=== PATIENT | male | born 1970 | race African-American/Black ===

== ENCOUNTER 2018-06-02 00:34 | Emergency (ER) | payer OTHER ==
[2018-06-02] MEDS: HYDROmorphone 1 MG/ML Syringe IVPUSH ONE (01:12)
[2018-06-02] MEDS: Ondansetron 4 MG/2 ML SDV IVPUSH ONE (01:12)
[2018-06-02] MEDS: Sodium Chloride 0.9% 2.5 ML Syringe FLUSH PRN (01:13)
[2018-06-02] MEDS: Sodium Chloride 0.9% 10 ML Syringe FLUSH PRN (01:13)
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
--- NOTE | 2018-06-02 01:45 | CR ---
INDICATION: Post surgical wrist pain TECHNIQUE: Wrist radiograph 3 views right COMPARISON: None FINDINGS: Bone: No acute fractures or aggressive bone lesions are identified. There is a K-wire present extending from the distal pole of the scaphoid into the capitate. Joint: The radiocarpal, carpal, and carpometacarpal joints are unremarkable in appearance. Soft tissue: A small amount of soft tissue gas is present from recent surgery. No radiopaque foreign bodies are seen. IMPRESSION: 1. No acute osseous injuries or abnormalities are noted. Dictated by Aron Samuel MD @ 06/02/2018 1:38:59 AM Dictated by: Aron Samuel MD @ 06/02/2018 01:44:26 (Electronically Signed)
[2018-06-02] MEDS: LORazepam 1 MG Tab PO ONE (02:15)
[2018-06-02] MEDS: Ketorolac 30 MG/ML SDV IVPUSH ONE (02:15)
[2018-06-02 03:16] VITALS: BP 168/114
== END 2018-06-02 03:05 | disposition home or self-care (01) ==
LOC: MW.ED 00:34
DX: G89.18 Other acute postprocedural pain (principal); Z98.890 Other specified postprocedural states; I10 Essential (primary) hypertension; F17.210 Nicotine dependence, cigarettes, uncomplicated; Z79.82 Long term (current) use of aspirin; Z79.899 Other long term (current) drug therapy; Z88.5 Allergy status to narcotic agent; Z88.6 Allergy status to analgesic agent
CPT/HCPCS: 73110-26-RT; 73110-RT; 96374; 96375; 99283-25; A9270-GY; J1170; J1885; J2405

== ENCOUNTER 2018-07-08 09:19 | Emergency (ER) | payer OTHER ==
[2018-07-08] MEDS ORDERED: Sodium Chloride 0.9% 10 ML Syringe FLUSH PRN (09:24)
[2018-07-08] MEDS ORDERED: Sodium Chloride 0.9% 1,000 ML IV ONE (09:24)
[2018-07-08] MEDS ORDERED: methylPREDNISolone Sodium Succinate 125 MG/2 ML SDV ONE (09:24)
[2018-07-08] MEDS ORDERED: diphenhydrAMINE 50 MG/ML SDV ONE (09:24)
[2018-07-08] MEDS ORDERED: Nitroglycerin 0.4 MG Tab.SL ONE (09:24)
[2018-07-08] MEDS ORDERED: diphenhydrAMINE 50 MG/ML SDV IVPUSH ONE (09:24)
[2018-07-08] MEDS ORDERED: Sodium Chloride 0.9% 2.5 ML Syringe FLUSH PRN (09:24)
[2018-07-08] MEDS ORDERED: methylPREDNISolone Sodium Succinate 125 MG/2 ML SDV IVPUSH ONE (09:24)
[2018-07-08] MEDS ORDERED: Famotidine 20 MG/2 ML SDV IVPUSH ONE (09:24)
[2018-07-08] MEDS ORDERED: Labetalol 20 MG/4 ML Syringe IVPUSH ONE ×3 (09:25→09:43)
[2018-07-08] MEDS ORDERED: Famotidine 20 MG/2 ML SDV ONE (09:25)
--- NOTE | 2018-07-08 09:26 | EDM.PDOC ---
ED HPI GENERAL MEDICAL PROBLEM - General Stated Complaint: trouble breathing Time Seen by Provider: 07/08/18 09:22 Source of Information: Reports: Patient History Limitations: Reports: No Limitations - History of Present Illness INITIAL COMMENTS - FREE TEXT/NARRATIVE: History of present illness: []Patient was started on triamterene/hydrochlorothiazide and Buproprion on 06/17 and began having hives 3 days ago. He has been taking Benadryl for the hives and this morning started having chest pain. His chest pain was 10/10 and complained of difficulty breathing and itchy rash on arrival. Patient denies recent illnesses. Review of systems: As per history of present illness and below otherwise all systems reviewed and negative. Past medical history: As per history of present illness and as reviewed below otherwise noncontributory. Surgical history: As per history of present illness and as reviewed below otherwise noncontributory. Social history: No reported history of drug or alcohol abuse. Family history: As per history of present illness and as reviewed below otherwise noncontributory. Physical exam: General: Well developed, well nourished in NAD HEENT: Atraumatic, normocephalic, pupils reactive, negative for conjunctival pallor or scleral icterus, mucous membranes moist, throat clear, neck supple, nontender, trachea midline. Lungs: Clear to auscultation, breath sounds equal bilaterally, chest nontender. Heart: S1S2, regular, negative for clicks, rubs, or JVD. Abdomen: NABS, Soft, nondistended, nontender. Negative for masses or hepatosplenomegaly. Negative for costovertebral tenderness. Pelvis: Stable nontender. Genitourinary: Deferred. Rectal: Deferred. Extremities: Atraumatic, negative for cords or calf pain. Neurovascular unremarkable. Neuro: Awake, alert, oriented. Cranial nerves II through XII unremarkable. Cerebellum unremarkable. Motor and sensory unremarkable throughout. Exam nonfocal. Skin:warm and dry Diagnostics: EKG, CBC, chemistry, troponin, chest [id number], CT head-negative, and tissue neck-negative Therapeutics: Aspirin, SL nitroglycerin, nitroglycerin drip, labetalol 20 mg IV push 2, Benadryl 50 mg, Solu-Medrol 125, Pepcid 20mg IV ED Course: Dr. Stearns, cardiology, consulted to evaluate patient's EKG-recommended BP treatment and repeating EKG 30 minutes. Improved chest pain from 02/02-08/03, blood pressure 225/136 to 159/95 10:30-Dr. Matta accepts patient to [facility] emergency room Impression: Hypertensive emergency Prescriptions: none Plan: Transfer to [facility] Definitive disposition and diagnosis as appropriate pending reevaluation and review of above. Chest Pain Score (Numeric/FACES): 6 - Related Data Allergies Allergy/AdvReac Type Severity Reaction Status Date / Time morphine Allergy Other Verified 07/08/18 09:37 oxycodone HCl [From Percocet] Allergy Nausea Verified 07/08/18 09:37 Home Meds: Home Meds Triamterene/Hydrochlorothiazid [Triamterene-HCTZ 37.5-25 MG] 1 each PO DAILY [History] buPROPion [buPROPion XL] 150 mg PO BEDTIME 07/08/18 [History] Past Medical History HEENT History: Reports: Allergic Rhinitis Cardiovascular History: Reports: Hypertension Musculoskeletal History: Reports: Osteoarthritis - Past Surgical History Musculoskeletal Surgical History: Reports: Arthroscopic Knee, ORIF, Other (See Below) Other Musculoskeletal Surgeries/Procedures:: R wrist ligament repair and scope Social & Family History - Living Situation & Occupation Living situation: Reports: , with Spouse Occupation: Employed ED ROS ALLERGIC REACTION - Review of Systems Review Of Systems: ROS reveals no pertinent complaints other than HPI. ED EXAM GENERAL NO PERIP PULSE - Physical Exam Exam: See Below (See history of present illness) Course - Vital Signs Last Recorded V/S: Last Vital Signs Temp 98 F 07/08/18 09:37 Pulse 66 07/08/18 10:13 Resp 16 07/08/18 10:13 BP 142/81 H 07/08/18 11:00 Pulse Ox 95 07/08/18 09:56 - Orders/Labs/Meds Orders: Active Orders 24 hr Category Date Time Status Patient Status [ADT] Stat ADT 07/08/18 10:09 Active EKG Documentation Completion [RC] STAT Care 07/08/18 09:24 Active EKG Documentation Completion [RC] STAT Care 07/08/18 09:54 Active Nitroglycerin/D5W [Nitroglycerin 25 MG/D5W 250 ML] Med 07/08/18 10:00 Active 25 mg in 250 ml IV TITRATE Sodium Chloride 0.9% [Saline Flush] Med 07/08/18 09:24 Active 10 ml FLUSH ASDIRECTED PRN Sodium Chloride 0.9% [Saline Flush] Med 07/08/18 09:24 Active 2.5 ml FLUSH ASDIRECTED PRN Saline Lock Insert [OM.PC] Stat Oth 07/08/18 09:24 Ordered Medication Orders Nitroglycerin/Dextrose (Nitroglycerin 25 Mg/D5w 250 Ml) 25 mg in 250 mls @ 3 mls/hr IV TITRATE DALILA; Protocol Last Titration: 07/08/18 10:39 Dose: 9 mcg/min, 5.4 mls/hr Titration: 07/08/18 10:29 Dose: 7 mcg/min, 4.2 mls/hr Titration: 07/08/18 10:24 Dose: 9 mcg/min, 5.4 mls/hr Titration: 07/08/18 10:19 Dose: 11 mcg/min, 6.6 mls/hr Titration: 07/08/18 10:14 Dose: 9 mcg/min, 5.4 mls/hr Titration: 07/08/18 10:09 Dose: 7 mcg/min, 4.2 mls/hr Admin: 07/08/18 09:50 Dose: 5 mcg/min, 3 mls/hr Sodium Chloride (Saline Flush) 10 ml FLUSH ASDIRECTED PRN PRN Reason: Keep Vein Open Sodium Chloride (Saline Flush) 2.5 ml FLUSH ASDIRECTED PRN PRN Reason: Keep Vein Open Labs: Laboratory Tests 07/08/18 07/08/18 Range/Units 09:27 09:27 WBC 7.84 (4.0-11.0) K/uL RBC 5.53 (4.50-5.90) M/uL Hgb 13.9 (13.0-17.0) g/dL Hct 42.7 (38.0-50.0) % MCV 77.2 L (80.0-98.0) fL MCH 25.1 L (27.0-32.0) pg MCHC 32.6 (31.0-37.0) g/dL RDW Std Deviation 40.1 (28.0-62.0) fl RDW Coeff of Gregorio 14 (11.0-15.0) % Plt Count 213 (150-400) K/uL MPV 11.00 (7.40-12.00) fL Neut % (Auto) 62.2 (48.0-80.0) % Lymph % (Auto) 29.1 (16.0-40.0) % [place] % (Auto) 7.0 (0.0-15.0) % Eos % (Auto) 1.4 (0.0-7.0) % Baso % (Auto) 0.3 (0.0-1.5) % Neut # (Auto) 4.9 (1.4-5.7) K/uL Lymph # (Auto) 2.3 (0.6-2.4) K/uL [place] # (Auto) 0.6 (0.0-0.8) K/uL Eos # (Auto) 0.1 (0.0-0.7) K/uL Baso # (Auto) 0.0 (0.0-0.1) K/uL Nucleated RBC % 0.0 /100WBC Nucleated RBCs # 0 K/uL Sodium 140 (136-148) mmol/L Potassium 3.9 (3.5-5.1) mmol/L Chloride 103 (98-107) mmol/L Carbon Dioxide 26.7 (21.0-32.0) mmol/L BUN 21 H (7.0-18.0) mg/dL Creatinine 1.5 H (0.8-1.3) mg/dL Est Cr Clr Drug Dosing 71.98 mL/min Estimated GFR (MDRD) > 60.0 ml/min Glucose 128 H (74-106) mg/dL Calcium 9.7 (8.5-10.1) mg/dL Total Bilirubin 0.6 (0.2-1.0) mg/dL AST 23 (15-37) IU/L ALT 51 (14-63) IU/L Alkaline Phosphatase 72 (46-116) U/L Troponin I < 0.050 (0.000-0.056) ng/mL Total Protein 8.1 (6.4-8.2) g/dL Albumin 4.2 (3.4-5.0) g/dL Globulin 3.9 (2.6-4.0) g/dL Albumin/Globulin Ratio 1.1 (0.9-1.6) Meds: Medications Generic Name Dose Route Start Last Admin Trade Name Freq PRN Reason Stop Dose Admin Nitroglycerin/Dextrose 25 mg in 250 mls @ 3 mls/hr 07/08/18 10:00 07/08/18 10 :39 Nitroglycerin 25 Mg/D5w 250 Ml IV 9 mcg/min TITRATE DALILA 5.4 mls/hr Titration Protocol 5 MCG/MIN Sodium Chloride 10 ml 07/08/18 09:24 Saline Flush FLUSH ASDIRECTED PRN Keep Vein Open Sodium Chloride 2.5 ml 07/08/18 09:24 Saline Flush FLUSH ASDIRECTED PRN Keep Vein Open Discontinued Medications Generic Name Dose Route Start Last Admin Trade Name Clarenceq PRN Reason Stop Dose Admin Diphenhydramine HCl 50 mg 07/08/18 09:24 07/08/18 09:30 Benadryl IVPUSH 07/08/18 09:25 50 mg ONETIME ONE Administration Diphenhydramine HCl Confirm 07/08/18 09:24 07/08/18 09:46 Benadryl Administered 07/08/18 09:25 Not Given Dose 50 mg .ROUTE .STK-MED ONE Famotidine 20 mg 07/08/18 09:24 07/08/18 09:32 Pepcid IVPUSH 07/08/18 09:25 20 mg ONETIME ONE Administration Famotidine Confirm 07/08/18 09:25 07/08/18 09:45 Pepcid Administered 07/08/18 09:26 Not Given Dose 20 mg .ROUTE .STK-MED ONE Hydromorphone HCl Confirm 07/08/18 09:44 07/08/18 09:57 Dilaudid Administered 07/08/18 09:45 Not Given Dose 2 mg .ROUTE .STK-MED ONE Hydromorphone HCl 0.5 mg 07/08/18 09:56 07/08/18 10:01 Dilaudid IVPUSH 07/08/18 09:57 0.5 mg ONETIME ONE Administration Sodium Chloride 1,000 mls @ 250 mls/hr 07/08/18 09:24 07/08/18 10:10 Normal Saline IV 07/08/18 13:23 Not Given .Bolus ONE Nitroglycerin/Dextrose Confirm 07/08/18 09:44 07/08/18 09:50 Nitroglycerin 25 Mg/D5w 250 Ml Administered 07/08/18 09:45 Not Given Dose 25 mg in 250 mls @ as directed .ROUTE .STK-MED ONE Labetalol HCl 20 mg 07/08/18 09:37 07/08/18 09:45 Normodyne IVPUSH 07/08/18 09:38 Not Given NOW ONE Protocol Labetalol HCl 20 mg 07/08/18 09:43 07/08/18 09:45 Normodyne IVPUSH 07/08/18 09:44 20 mg NOW ONE Administration Protocol Labetalol HCl 20 mg 07/08/18 10:20 07/08/18 11:11 Normodyne IVPUSH 07/08/18 10:21 Not Given NOW ONE Protocol Lorazepam Confirm 07/08/18 09:44 07/08/18 10:10 Ativan Administered 07/08/18 09:45 Not Given Dose 2 mg .ROUTE .STK-MED ONE Methylprednisolone Sodium Succinate 125 mg 07/08/18 09:24 07/08/18 09:42 Solu-Medrol IVPUSH 07/08/18 09:25 125 mg ONETIME ONE Administration Methylprednisolone Sodium Succinate Confirm 07/08/18 09:24 07/08/18 09:44 Solu-Medrol Administered 07/08/18 09:25 Not Given Dose 125 mg .ROUTE .STK-MED ONE Nitroglycerin Confirm 07/08/18 09:24 07/08/18 09:46 Nitrostat Administered 07/08/18 09:25 Not Given Dose 0.4 mg .ROUTE .STK-MED ONE Nitroglycerin 0.4 mg 07/08/18 09:26 07/08/18 09:38 Nitrostat SL 0.4 mg Q5M PRN Administration Chest Pain Ondansetron HCl 4 mg 07/08/18 09:56 07/08/18 09:58 Zofran IVPUSH 07/08/18 09:57 4 mg ONETIME ONE Administration Departure - Departure Time of Disposition: 11:05 Disposition: DC/Tfer to Acute Hospital 02 Condition: Serious Clinical Impression: Hypertensive emergency - Discharge Information - My Orders Last 24 Hours: My Active Orders 07/08/18 09:24 EKG Documentation Completion [RC] STAT Sodium Chloride 0.9% [Saline Flush] 10 ml FLUSH ASDIRECTED PRN Sodium Chloride 0.9% [Saline Flush] 2.5 ml FLUSH ASDIRECTED PRN Saline Lock Insert [OM.PC] Stat 07/08/18 09:54 EKG Documentation Completion [RC] STAT 07/08/18 10:00 Nitroglycerin/D5W [Nitroglycerin 25 MG/D5W 250 ML] 25 mg in 250 ml IV TITRATE 07/08/18 10:09 Patient Status [ADT] Stat - Assessment/Plan Last 24 Hours: My Active Orders 07/08/18 09:24 EKG Documentation Completion [RC] STAT Sodium Chloride 0.9% [Saline Flush] 10 ml FLUSH ASDIRECTED PRN Sodium Chloride 0.9% [Saline Flush] 2.5 ml FLUSH ASDIRECTED PRN Saline Lock Insert [OM.PC] Stat 07/08/18 09:54 EKG Documentation Completion [RC] STAT 07/08/18 10:00 Nitroglycerin/D5W [Nitroglycerin 25 MG/D5W 250 ML] 25 mg in 250 ml IV TITRATE 07/08/18 10:09 Patient Status [ADT] Stat
[2018-07-08] MEDS ORDERED: EPINEPHrine 1 MG/ML SDV IM ONE (09:29)
[2018-07-08] MEDS: Nitroglycerin 0.4 MG Tab.SL SL PRN ×3 (09:29→09:38)
[2018-07-08] MEDS ORDERED: HYDROmorphone 2 MG/ML Syringe ONE (09:44)
[2018-07-08] MEDS ORDERED: LORazepam 2 MG/ML SDV ONE (09:44)
[2018-07-08] MEDS ORDERED: Nitroglycerin/D5W 25 MG/250 ML BOTTLE ONE (09:44)
[2018-07-08] MEDS ORDERED: Ondansetron 4 MG/2 ML SDV IVPUSH ONE (09:56)
[2018-07-08] MEDS ORDERED: HYDROmorphone 2 MG/ML Syringe IVPUSH ONE (09:56)
[2018-07-08] MEDS ORDERED: Nitroglycerin/D5W 250 ML IV SCH (10:00)
[2018-07-08] MEDS ORDERED: Nitroglycerin/D5W 25 MG/250 ML BOTTLE IV SCH (10:00)
[2018-07-08 10:01] LABS: CHLORIDE,CL 103 mmol/L (98-107); SODIUM,NA 140 mmol/L (136-148)
[2018-07-08] MEDS: Labetalol 20 MG/4 ML Syringe IVPUSH ONE ×2 (10:23→11:11)
--- NOTE | 2018-07-08 11:06 | CR ---
EXAMINATION: Portable chest radiograph. HISTORY: Shortness of breath. FINDINGS: The trachea is midline. The cardiomediastinal silhouette is within normal limits. No pulmonary infiltrates, effusions or pneumothorax. Osseous structures appear unremarkable. IMPRESSION: No acute cardiopulmonary process.
[2018-07-08 11:15] VITALS: BP 142/81
--- NOTE | 2018-07-08 11:25 | CT ---
EXAMINATION: Non contrast CT head. Coronal and sagittal reformats. HISTORY: Pain FINDINGS: No evidence of intra or extra axial hemorrhage, mass, midline shift, hydrocephalus or edema. No hypoattenuation changes in the major vascular territories to suggest acute infarct. No abnormal intracranial calcifications are detected. No evidence of substantial vascular calcifications. Paranasal sinuses and mastoid air cells are well aerated without substantial findings. Orbits and globes are symmetric. Pituitary fossa appears unremarkable. Calvarium is intact. No evidence of skull fracture. IMPRESSION: No acute intracranial findings.
--- NOTE | 2018-07-08 11:28 | CT ---
EXAMINATION: CT soft tissue neck without contrast HISTORY: Both the swallowing COMPARISON: None TECHNIQUE: Axial CT imaging obtained through the neck without contrast. Sagittal reconstructions obtained. FINDINGS: The pharyngeal mucosal structures appear grossly symmetric. Parotid and submandibular glands are normal. Larynx and upper trachea appear grossly unremarkable. No bulky cervical lymphadenopathy. The thyroid gland appears grossly normal. No suspicious osseous abnormalities identified. The lung apices are clear. IMPRESSION: No acute findings noted.
== END 2018-07-08 11:25 ==
LOC: MW.ED 09:19 → UNDOADMIN 10:17 → MW.ICU 10:17 → UNDODISIN 10:30
DX: I16.0 Hypertensive urgency (principal); I10 Essential (primary) hypertension; Z88.5 Allergy status to narcotic agent; Z88.8 Allergy status to other drugs, medicaments and biological substances
CPT/HCPCS: 70450; 70490; 71045; 80053; 84484; 85025; 93005; 96365; 96366; 96374; 96375; 99285; A9270; J1170; J1200; J2405; J2930; J3490

== ENCOUNTER 2020-04-11 17:49 | Inpatient (IN) | payer SELFPAY ==
[2020-04-11] MEDS ORDERED: Albuterol/Ipratropium 3.0-0.5 MG/3 ML Neb Soln NEB PRN (18:34)
[2020-04-11] MEDS ORDERED: Ondansetron 4 MG Tab.DIS PO PRN (18:34)
--- NOTE | 2020-04-11 18:50 | PCM.HP.2 ---
<Yuniel Hernandez - Last Filed: 04/11/20 20:02> H&P History of Present Illness - General Date of Service: 04/11/20 Admit Problem/Dx: Admission Diagnosis/Problem Admission Diagnosis/Problem Diarrhea in adult patient Source of Information: Patient History Limitations: Reports: No Limitations - History of Present Illness Initial Comments - Free Text/Narative: Patient is a 49-year-old male with a significant past medical history of hypertension on triamterene and losartan presenting today as transfer from [facility] secondary for 9 to 10 days of increasing diarrhea and reduced appetite. Patient did test positive for Covid 9 days prior and was advised to monitor vitals at home. Since diagnosis patient has been lethargic, fatigued, complaining of decreased appetite. Of note has been trying to keep hydrated with liquids and chicken soup but is having 6-7 watery bowel movements daily sometimes waking up in the middle of the night. Denies any chest pain, shortness of breath. 2 days prior appreciated some fevers with chills with increasing fatigue and presented himself to [facility] clinic where it was determined that patient will likely need to be transferred to [facility] in [place]. ED course in [facility]: Patient received 10 mg dexamethasone +2 L LR bolus and Toradol 50 mg IV once. EKG performed showing no ST elevation or depression CT angio ordered secondary to elevated D-dimer showing no pulmonary embolism. Patchy groundglass opacities throughout both lungs most likely representing Covid pneumonia. Mild bilateral bronchial wall thickening. Positive small hiatal hernia. Labs Troponin at 1209: 0.04 troponin at 1411: 0.03 WBC 5.1. Creatinine 2.65 GFR 31 D-dimer 1.32. UA negative Bedside: Patient is complaining of increasing diarrhea+ fatigue with minimal shortness of breath. Patient denies any chest pain, palpitations. Positive headache. Is complaining of decreased appetite but will try to have some dinner tonight. - Related Data Allergies/Adverse Reactions: Allergies Allergy/AdvReac Type Severity Reaction Status Date / Time morphine Allergy Other Verified 07/08/18 09:37 oxycodone HCl [From Percocet] Allergy Nausea Verified 07/08/18 09:37 Home Medications: Home Meds Triamterene/Hydrochlorothiazid [Triamterene-HCTZ 37.5-25 MG] 1 each PO DAILY 07/08/18 [History] buPROPion [buPROPion XL] 150 mg PO BEDTIME 07/08/18 [History] Losartan [Cozaar] 100 mg PO DAILY 04/12/20 [History] Past Medical History HEENT History: Reports: Allergic Rhinitis Cardiovascular History: Reports: Hypertension Respiratory History: Reports: Sleep Apnea Gastrointestinal History: Reports: None Genitourinary History: Reports: None Musculoskeletal History: Reports: Osteoarthritis Neurological History: Reports: None Psychiatric History: Reports: None Endocrine/Metabolic History: Reports: None Hematologic History: Reports: None Immunologic History: Reports: None Oncologic (Cancer) History: Reports: None Dermatologic History: Reports: None - Infectious Disease History Infectious Disease History: Reports: Chicken Pox, Measles, Mumps - Past Surgical History Head Surgeries/Procedures: Reports: None HEENT Surgical History: Reports: None Cardiovascular Surgical History: Reports: None Respiratory Surgical History: Reports: None GI Surgical History: Reports: None Musculoskeletal Surgical History: Reports: Arthroscopic Knee, ORIF, Other (See Below) Other Musculoskeletal Surgeries/Procedures:: R wrist ligament repair and scope Social & Family History - Family History Family Medical History: No Pertinent Family History Respiratory: Reports: None - Tobacco Use Tobacco Use Status *Q: Former Tobacco User Years of Tobacco use: 15 Used Tobacco, but Quit: Yes Month/Year Tobacco Last Used: years ago Second Hand Smoke Exposure: Yes - Caffeine Use Caffeine Use: Reports: None - Recreational Drug Use Recreational Drug Use: No - Living Situation & Occupation Living situation: Reports: , with Spouse Occupation: Employed H&P Review of Systems - Review of Systems: Review Of Systems: See Below General: Reports: Chills, Malaise, Fatigue. Denies: Fever HEENT: Reports: No Symptoms Pulmonary: Reports: Cough. Denies: Shortness of Breath, Wheezing, Pleuritic Chest Pain, Sputum Cardiovascular: Denies: Chest Pain, Palpitations, Edema Gastrointestinal: Reports: Diarrhea, Decreased Appetite, Nausea. Denies: Abdominal Pain, Constipation Genitourinary: Reports: No Symptoms Musculoskeletal: Reports: No Symptoms Skin: Reports: No Symptoms Psychiatric: Reports: No Symptoms Neurological: Reports: No Symptoms, Headache. Denies: Confusion, Dizziness Exam - Exam Exam: See Below - Vital Signs Weight: 137.348 kg - Exam General: Alert, Oriented, Cooperative HEENT: EOMI, Other (dry oral mucosa) Neck: Supple, Trachea Midline Lungs: Other (b/l rhonchi w. mild expiratory wheeze ) Cardiovascular: Regular Rate, Regular Rhythm GI/Abdominal Exam: Soft, Non-Tender, Other (hyperactive BS) Extremities: Normal Inspection, Normal Range of Motion Neurological: Cranial Nerves Intact Neuro Extensive - Mental Status: Alert, Oriented x3, Normal Mood/Affect Psychiatric: Alert, Normal Mood - Patient Data Result Diagrams: 04/11/20 19:03 Sepsis Event Note - Evaluation Sepsis Screening Result: No Definite Risk - Problem List (1) COVID-19 SNOMED Code(s): 622003500 ICD Code: U07.1 - COVID-19 Status: Acute Current Visit: Yes (2) Dehydration SNOMED Code(s): 66425832 ICD Code: E86.0 - DEHYDRATION Status: Acute Current Visit: Yes (3) Diarrhea SNOMED Code(s): 49864177 ICD Code: R19.7 - DIARRHEA, UNSPECIFIED Status: Acute Current Visit: Yes (4) Hypertension SNOMED Code(s): 33305856 ICD Code: I10 - ESSENTIAL (PRIMARY) HYPERTENSION Status: Acute Current Visit: Yes Problem List Initiated/Reviewed/Updated: Yes Orders Last 24hrs: Active Orders 24 hr Category Date Time Status Patient Status [ADT] Routine ADT 04/11/20 18:34 Active Acapella [RT Chest Physiotherapy] [RC] ASDIRECTED Care 04/11/20 18:49 Active Bedrest Bathroom Privileges [RC] ASDIRECTED Care 04/11/20 18:34 Active Height and Weight [RC] DAILY Care 04/11/20 18:34 Active Intake and Output [RC] QSHIFT Care 04/11/20 18:36 Active May Shower [RC] ASDIRECTED Care 04/11/20 18:34 Active Oxygen Therapy [RC] PRN Care 04/11/20 18:34 Active RT Aerosol Therapy [RC] ASDIRECTED Care 04/11/20 18:38 Active Up ad Danna [RC] ASDIRECTED Care 04/11/20 18:34 Active VTE/DVT Education [RC] PER UNIT ROUTINE Care 04/11/20 18:34 Active Vital Signs [RC] Q4H Care 04/11/20 18:34 Active Respiratory Care Assess and Treatment [CONS] Routine Cons 04/11/20 18:34 Active Heart Healthy Diet [DIET] Diet 04/12/20 Breakfast Active Acetaminophen [TylenoL] Med 04/11/20 18:34 Active 650 mg PO Q4H PRN Albuterol/Ipratropium [DuoNeb 3.0-0.5 MG/3 ML] Med 04/11/20 18:34 Active 3 ml NEB Q4HRRT PRN Lactated Ringers [Ringers, Lactated] 1,000 ml Med 04/11/20 19:00 Ordered IV ASDIRECTED Ondansetron [Zofran ODT] Med 04/11/20 18:34 Active 4 mg PO Q4H PRN Pantoprazole [ProTONIX IV] Med 04/11/20 20:00 Active 40 mg IVPUSH Q24H Resuscitation Status Routine Resus Stat 04/11/20 18:34 Ordered Medication Orders Acetaminophen (Tylenol) 650 mg PO Q4H PRN PRN Reason: Pain (Mild 1-3)/fever Albuterol/Ipratropium (Duoneb 3.0-0.5 Mg/3 Ml) 3 ml NEB Q4HRRT PRN PRN Reason: Shortness Of Breath/wheezing Lactated Ringer's (Ringers, Lactated) 1,000 mls @ 200 mls/hr IV ASDIRECTED DALILA Ondansetron HCl (Zofran Odt) 4 mg PO Q4H PRN PRN Reason: nausea, able to take PO Pantoprazole Sodium (Protonix Iv) 40 mg IVPUSH Q24H DALILA Assessment/Plan Comment:: Assessment: 1. Dehydration with diarrhea 2. Viral pneumonia most likely secondary to COVID-19 3. Acute kidney injury secondary to above 4. Elevated D-dimer with negative CT chest 5. Past medical history: Hypertension, obesity Plan. Admit inpatient. Full code. I's and O's per routine. Vitals per routine. Pantoprazole 40 daily. DVT prophylaxis: heparin 5000 q 12 hrs Heart healthy Diet 1. Significant dehydration in light of diarrhea probably secondary to COVID-19 infection: Continue LR at 200 cc/h. Has received 2.5 L since discharge from [facility]. Repeat CBC and CMP in the morning. Repeat BMP suggests some improvement since fluid hydration; negative troponin. Received Dexamethasone at outside facility; currently not requiring O2 Stool studies ordered. 2. TIFFANY: continue hydration: recheck labs in AM . LR 200 cc/hr continue 3. Hold home medications for now due to sofer BP secondary to dehydration <Kenneth Duenas - Last Filed: 04/12/20 18:01> H&P History of Present Illness - General Admit Problem/Dx: Admission Diagnosis/Problem Admission Diagnosis/Problem Diarrhea in adult patient Exam - Vital Signs Vital Signs: Last Vital Signs Temp 39.0 C H 04/12/20 17:20 Pulse 75 04/12/20 17:20 Resp 18 04/12/20 17:20 BP 147/76 H 04/12/20 17:20 Pulse Ox 96 04/12/20 17:20 - Patient Data Lab Results Last 24 hrs: Laboratory Results - last 24 hr 04/11/20 04/12/20 04/12/20 Range/Units 19:03 05:35 05:35 WBC 8.15 (4.0-11.0) K/uL RBC 4.97 (4.50-5.90) M/uL Hgb 12.3 L (13.0-17.0) g/dL Hct 38.2 (38.0-50.0) % MCV 76.9 L (80.0-98.0) fL MCH 24.7 L (27.0-32.0) pg MCHC 32.2 (31.0-37.0) g/dL RDW Std Deviation 37.1 (28.0-62.0) fl RDW Coeff of Gregorio 13 (11.0-15.0) % Plt Count 230 (150-400) K/uL MPV 10.30 (7.40-12.00) fL Neut % (Auto) 84.4 H (48.0-80.0) % Lymph % (Auto) 7.0 L (16.0-40.0) % Haskell % (Auto) 8.5 (0.0-15.0) % Eos % (Auto) 0.0 (0.0-7.0) % Baso % (Auto) 0.1 (0.0-1.5) % Neut # (Auto) 6.9 H (1.4-5.7) K/uL Lymph # (Auto) 0.6 (0.6-2.4) K/uL Haskell # (Auto) 0.7 (0.0-0.8) K/uL Eos # (Auto) 0.0 (0.0-0.7) K/uL Baso # (Auto) 0.0 (0.0-0.1) K/uL Nucleated RBC % 0.0 /100WBC Nucleated RBCs # 0 K/uL Lactate (0.20-2.00) mmol/L Sodium 135 L 134 L (136-148) mmol/L Potassium 4.5 4.4 (3.5-5.1) mmol/L Chloride 97 L 99 (98-107) mmol/L Carbon Dioxide 28.8 26.9 (21.0-32.0) mmol/L BUN 24 H 22 H (7.0-18.0) mg/dL Creatinine 2.4 H 1.7 H (0.8-1.3) mg/dL Est Cr Clr Drug Dosing 42.81 60.44 mL/min Estimated GFR (MDRD) 28.8 42.9 ml/min Glucose 175 H 133 H (74-106) mg/dL POC Glucose (60-110) mg/dL Hemoglobin A1c (4.5 - 6.2) % Calcium 9.1 8.7 (8.5-10.1) mg/dL Magnesium 2.4 (1.8-2.4) mg/dL Total Bilirubin 0.8 (0.2-1.0) mg/dL Direct Bilirubin (0.0-0.5) mg/dL AST 41 H (15-37) IU/L ALT 50 (14-63) IU/L Alkaline Phosphatase 45 L (46-116) U/L Troponin I < 0.050 (0.000-0.056) ng/mL Total Protein 7.3 (6.4-8.2) g/dL Albumin 3.2 L (3.4-5.0) g/dL Globulin 4.1 H (2.6-4.0) g/dL Albumin/Globulin Ratio 0.8 L (0.9-1.6) 04/12/20 04/12/20 04/12/20 Range/Units 05:35 08:57 11:35 WBC (4.0-11.0) K/uL RBC (4.50-5.90) M/uL Hgb (13.0-17.0) g/dL Hct (38.0-50.0) % MCV (80.0-98.0) fL MCH (27.0-32.0) pg MCHC (31.0-37.0) g/dL RDW Std Deviation (28.0-62.0) fl RDW Coeff of Gregorio (11.0-15.0) % Plt Count (150-400) K/uL MPV (7.40-12.00) fL Neut % (Auto) (48.0-80.0) % Lymph % (Auto) (16.0-40.0) % Haskell % (Auto) (0.0-15.0) % Eos % (Auto) (0.0-7.0) % Baso % (Auto) (0.0-1.5) % Neut # (Auto) (1.4-5.7) K/uL Lymph # (Auto) (0.6-2.4) K/uL Haskell # (Auto) (0.0-0.8) K/uL Eos # (Auto) (0.0-0.7) K/uL Baso # (Auto) (0.0-0.1) K/uL Nucleated RBC % /100WBC Nucleated RBCs # K/uL Lactate (0.20-2.00) mmol/L Sodium (136-148) mmol/L Potassium (3.5-5.1) mmol/L Chloride (98-107) mmol/L Carbon Dioxide (21.0-32.0) mmol/L BUN (7.0-18.0) mg/dL Creatinine (0.8-1.3) mg/dL Est Cr Clr Drug Dosing mL/min Estimated GFR (MDRD) ml/min Glucose (74-106) mg/dL POC Glucose 122 H 124 H (60-110) mg/dL Hemoglobin A1c 6.4 H (4.5 - 6.2) % Calcium (8.5-10.1) mg/dL Magnesium (1.8-2.4) mg/dL Total Bilirubin (0.2-1.0) mg/dL Direct Bilirubin (0.0-0.5) mg/dL AST (15-37) IU/L ALT (14-63) IU/L Alkaline Phosphatase (46-116) U/L Troponin I (0.000-0.056) ng/mL Total Protein (6.4-8.2) g/dL Albumin (3.4-5.0) g/dL Globulin (2.6-4.0) g/dL Albumin/Globulin Ratio (0.9-1.6) 04/12/20 04/12/20 04/12/20 Range/Units 12:39 12:39 16:31 WBC (4.0-11.0) K/uL RBC (4.50-5.90) M/uL Hgb (13.0-17.0) g/dL Hct (38.0-50.0) % MCV (80.0-98.0) fL MCH (27.0-32.0) pg MCHC (31.0-37.0) g/dL RDW Std Deviation (28.0-62.0) fl RDW Coeff of Gregorio (11.0-15.0) % Plt Count (150-400) K/uL MPV (7.40-12.00) fL Neut % (Auto) (48.0-80.0) % Lymph % (Auto) (16.0-40.0) % Haskell % (Auto) (0.0-15.0) % Eos % (Auto) (0.0-7.0) % Baso % (Auto) (0.0-1.5) % Neut # (Auto) (1.4-5.7) K/uL Lymph # (Auto) (0.6-2.4) K/uL Haskell # (Auto) (0.0-0.8) K/uL Eos # (Auto) (0.0-0.7) K/uL Baso # (Auto) (0.0-0.1) K/uL Nucleated RBC % /100WBC Nucleated RBCs # K/uL Lactate 2.6 H* 1.5 (0.20-2.00) mmol/L Sodium (136-148) mmol/L Potassium (3.5-5.1) mmol/L Chloride (98-107) mmol/L Carbon Dioxide (21.0-32.0) mmol/L BUN (7.0-18.0) mg/dL Creatinine (0.8-1.3) mg/dL Est Cr Clr Drug Dosing mL/min Estimated GFR (MDRD) ml/min Glucose (74-106) mg/dL POC Glucose (60-110) mg/dL Hemoglobin A1c (4.5 - 6.2) % Calcium (8.5-10.1) mg/dL Magnesium (1.8-2.4) mg/dL Total Bilirubin (0.2-1.0) mg/dL Direct Bilirubin 0.10 (0.0-0.5) mg/dL AST (15-37) IU/L ALT (14-63) IU/L Alkaline Phosphatase (46-116) U/L Troponin I (0.000-0.056) ng/mL Total Protein (6.4-8.2) g/dL Albumin (3.4-5.0) g/dL Globulin (2.6-4.0) g/dL Albumin/Globulin Ratio (0.9-1.6) 12/18/20 Range/Units 17:11 WBC (4.0-11.0) K/uL RBC (4.50-5.90) M/uL Hgb (13.0-17.0) g/dL Hct (38.0-50.0) % MCV (80.0-98.0) fL MCH (27.0-32.0) pg MCHC (31.0-37.0) g/dL RDW Std Deviation (28.0-62.0) fl RDW Coeff of Gregorio (11.0-15.0) % Plt Count (150-400) K/uL MPV (7.40-12.00) fL Neut % (Auto) (48.0-80.0) % Lymph % (Auto) (16.0-40.0) % Haskell % (Auto) (0.0-15.0) % Eos % (Auto) (0.0-7.0) % Baso % (Auto) (0.0-1.5) % Neut # (Auto) (1.4-5.7) K/uL Lymph # (Auto) (0.6-2.4) K/uL Haskell # (Auto) (0.0-0.8) K/uL Eos # (Auto) (0.0-0.7) K/uL Baso # (Auto) (0.0-0.1) K/uL Nucleated RBC % /100WBC Nucleated RBCs # K/uL Lactate (0.20-2.00) mmol/L Sodium (136-148) mmol/L Potassium (3.5-5.1) mmol/L Chloride (98-107) mmol/L Carbon Dioxide (21.0-32.0) mmol/L BUN (7.0-18.0) mg/dL Creatinine (0.8-1.3) mg/dL Est Cr Clr Drug Dosing mL/min Estimated GFR (MDRD) ml/min Glucose (74-106) mg/dL POC Glucose 136 H (60-110) mg/dL Hemoglobin A1c (4.5 - 6.2) % Calcium (8.5-10.1) mg/dL Magnesium (1.8-2.4) mg/dL Total Bilirubin (0.2-1.0) mg/dL Direct Bilirubin (0.0-0.5) mg/dL AST (15-37) IU/L ALT (14-63) IU/L Alkaline Phosphatase (46-116) U/L Troponin I (0.000-0.056) ng/mL Total Protein (6.4-8.2) g/dL Albumin (3.4-5.0) g/dL Globulin (2.6-4.0) g/dL Albumin/Globulin Ratio (0.9-1.6) Result Diagrams: 04/12/20 05:35 04/12/20 05:35 Sepsis Event Note - Focused Exam Vital Signs: Vital Signs Temp Temp Pulse Resp BP Pulse Ox 04/12/20 17:20 39.0 C H 75 18 147/76 H 96 04/12/20 17:08 39.0 C H 04/12/20 15:42 38.8 C H 84 96 04/12/20 14:54 38.6 C H 84 18 110/67 90 L 04/12/20 14:48 37.2 C 84 18 96 04/12/20 12:08 39.5 C H 04/12/20 11:50 39.3 C H 04/12/20 09:00 38.4 C H 84 18 129/73 92 L Orders Last 24hrs: Active Orders 24 hr Category Date Time Status Patient Status [ADT] Routine ADT 04/11/20 18:34 Active Acapella [RT Chest Physiotherapy] [RC] ASDIRECTED Care 04/11/20 18:49 Active Accu Check [Blood Glucose Check, Bedside] [RC] TIDMEALS Care 04/11/20 19:48 Active Bedrest Bathroom Privileges [RC] ASDIRECTED Care 04/11/20 18:34 Active Height and Weight [RC] DAILY Care 04/11/20 18:34 Active Intake and Output [RC] Q12H Care 04/11/20 18:36 Active May Shower [RC] ASDIRECTED Care 04/11/20 18:34 Active Oxygen Therapy [RC] PRN Care 04/11/20 18:34 Active RT Aerosol Therapy [RC] ASDIRECTED Care 04/11/20 18:38 Active RT BiPAP/CPAP [RC] ASDIRECTED Care 04/11/20 21:57 Active RT Post Treatment Assessment [RC] Click to Edit Care 04/11/20 22:19 Active RT Pre-Treatment Assessment [RC] Click to Edit Care 04/11/20 22:19 Active Telemetry Monitoring [Cardiac Monitoring] [RC] Q8H Care 04/11/20 18:54 Active Up ad Danna [RC] ASDIRECTED Care 04/11/20 18:34 Active VTE/DVT Education [RC] PER UNIT ROUTINE Care 04/11/20 18:34 Active Vital Signs [RC] Q4H Care 04/11/20 18:34 Active Respiratory Care Assess and Treatment [CONS] Routine Cons 04/11/20 18:34 Active Heart Healthy Diet [DIET] Diet 04/12/20 Breakfast Active BILIRUBIN DIRECT [CHEM] DAILY Lab 04/13/20 15:15 Ordered BILIRUBIN DIRECT [CHEM] DAILY Lab 04/14/20 15:15 Ordered BILIRUBIN DIRECT [CHEM] DAILY Lab 04/15/20 15:15 Ordered BILIRUBIN DIRECT [CHEM] DAILY Lab 04/16/20 15:15 Ordered CBC WITH AUTO DIFF [HEME] AM Lab 04/13/20 05:11 Ordered CBC WITH AUTO DIFF [HEME] AM Lab 04/14/20 05:11 Ordered COMPREHENSIVE METABOLIC PN,CMP [CHEM] AM Lab 04/13/20 05:11 Ordered COMPREHENSIVE METABOLIC PN,CMP [CHEM] AM Lab 04/14/20 05:11 Ordered CULTURE BLOOD [BC] Stat Lab 04/12/20 12:24 Received CULTURE BLOOD [BC] Stat Lab 04/12/20 12:39 Received STOOL CULTURE/SHIGA TOXIN [MREF] Urgent Lab 04/12/20 12:55 Received Acetaminophen [TylenoL] Med 04/11/20 18:34 Active 650 mg PO Q4H PRN Albuterol/Ipratropium [Combivent Respimat] Med 04/11/20 22:19 Active See Dose Instructions INH Q4H PRN Azithromycin [Zithromax] Med 04/12/20 10:00 Active 500 mg PO Q24H Benzonatate [Tessalon Perles] Med 04/12/20 08:58 Active 200 mg PO TID PRN Codeine/guaiFENesin [Robitussin AC] Med 04/12/20 12:00 Active 5 ml PO Q4HR Dextrose 50% in Water Med 04/11/20 19:48 Active 50 ml IV ASDIRECTED PRN Glucagon,Human Recombinant [GlucaGen] Med 04/11/20 19:48 Active 1 mg IM ASDIRECTED PRN Heparin Sodium Med 04/11/20 19:15 Active 5,000 units SUBCUT Q8H Insulin Aspart [NovoLOG] Med 04/12/20 07:30 Active See Protocol SUBCUT TIDAC Lactated Ringers [Ringers, Lactated] 1,000 ml Med 04/12/20 10:00 Active IV Q6H Ondansetron [Zofran ODT] Med 04/11/20 18:34 Active 4 mg PO Q4H PRN Pantoprazole [ProTONIX IV] Med 04/11/20 20:00 Active 40 mg IVPUSH Q24H Remdesivir 100 mg Med 04/13/20 09:00 Active Sodium Chloride 0.9% [Normal Saline] 100 ml IV Q24H cefTRIAXone [Rocephin in Dextrose,Iso-Osm 1 GM/50 ML] 1 Med 04/13/20 09:00 Active gm Premix Bag 1 bag IV Q24H dexAMETHasone Med 04/12/20 15:15 Active 6 mg PO DAILY Blood Culture x2 Reflex Set [OM.PC] Stat Oth 04/12/20 11:58 Ordered Resuscitation Status Routine Resus Stat 04/11/20 18:34 Ordered Medication Orders Acetaminophen (Tylenol) 650 mg PO Q4H PRN PRN Reason: Pain (Mild 1-3)/fever Last Admin: 04/12/20 17:08 Dose: 650 mg Documented by: Admin: 04/12/20 12:08 Dose: 650 mg Documented by: NAKIA Albuterol/Ipratropium (Combivent Respimat) 0 gm INH Q4H PRN PRN Reason: Dyspnea Azithromycin (Zithromax) 500 mg PO Q24H [facility] Last Admin: 04/12/20 10:31 Dose: 500 mg Documented by: NAKIA Benzonatate (Tessalon Perles) 200 mg PO TID PRN PRN Reason: Cough Last Admin: 04/12/20 11:41 Dose: 200 mg Documented by: NAKIA Dexamethasone (Dexamethasone) 6 mg PO DAILY [facility] Last Admin: 04/12/20 15:48 Dose: 6 mg Documented by: NAKIA Dextrose/Water (Dextrose 50% In Water) 50 ml IV ASDIRECTED PRN PRN Reason: Hypoglycemia Glucagon (Glucagen) 1 mg IM ASDIRECTED PRN PRN Reason: Hypoglycemia Guaifenesin/Codeine Phosphate (Robitussin Ac) 5 ml PO Q4HR [facility] Last Admin: 04/12/20 15:51 Dose: 5 ml Documented by: Admin: 04/12/20 13:23 Dose: Not Given Documented by: IGOR Heparin Sodium (Porcine) (Heparin Sodium) 5,000 units SUBCUT Q8H [facility] Last Admin: 04/12/20 11:37 Dose: 5,000 units Documented by: Admin: 04/12/20 03:42 Dose: 5,000 units Documented by: Admin: 04/11/20 20:07 Dose: 5,000 units Documented by: ANEL Lactated Ringer's (Ringers, Lactated) 1,000 mls @ 150 mls/hr IV Q6H [facility] Last Admin: 04/12/20 10:33 Dose: 150 mls/hr Documented by: NAKIA Remdesivir 100 mg/ Sodium (Chloride) 100 mls @ 100 mls/hr IV Q24H [facility] Stop: 04/16/20 09:59 Ceftriaxone Sodium/Dextrose 1 (gm/ Premix) 50 mls @ 100 mls/hr IV Q24H [facility] Insulin Aspart (Novolog) 0 unit SUBCUT TIDAC [facility]; Protocol Last Admin: 04/12/20 17:17 Dose: Not Given Documented by: Admin: 04/12/20 11:52 Dose: Not Given Documented by: Admin: 04/12/20 11:23 Dose: Not Given Documented by: IGOR Ondansetron HCl (Zofran Odt) 4 mg PO Q4H PRN PRN Reason: nausea, able to take PO Pantoprazole Sodium (Protonix Iv) 40 mg IVPUSH Q24H [facility] Last Admin: 04/11/20 20:56 Dose: 40 mg Documented by: ANEL Assessment/Plan Comment:: I performed a history and physical exam of the patient and discussed management with resident. I have reviewed the residents note and agree with documented f indings and plan unless otherwise specified in my note.
[2020-04-11] MEDS ORDERED: Lactated Ringers 1,000 ML IV SCH (19:00)
[2020-04-11] MEDS ORDERED: Heparin Sodium 5,000 Units/ML Vial SUBCUT SCH (19:15)
[2020-04-11 19:35] LABS: BLOOD UREA NITROGEN,BUN 24 mg/dL (7.0-18.0); CARBON DIOXIDE,CO2 28.8 mmol/L (21.0-32.0); CHLORIDE,CL 97 mmol/L (98-107); GLUCOSE RANDOM 175 mg/dL (74-106); POTASSIUM,K 4.5 mmol/L (3.5-5.1); SODIUM,NA 135 mmol/L (136-148)
[2020-04-11] MEDS ORDERED: Glucagon,Human Recombinant 1 MG Vial IM PRN (19:48)
[2020-04-11] MEDS ORDERED: 50% Dextrose in Water 50 ML Syringe IV PRN (19:48)
[2020-04-11] MEDS: Heparin Sodium 5,000 Units/ML Vial SUBCUT SCH (20:07)
[2020-04-11] MEDS: Pantoprazole 40 MG Vial IVPUSH SCH (20:56)
--- NOTE | 2020-04-11 22:17 | PCM.SN.2 ---
- Free Text/Narrative Note: patient was on oxygen at some point during his admission, but there is no documented hypoxia, unsure why patient was on oxygen. Upon rechecking oxygen sats on RA patient was saturating 95 to 97%, so patient was taken off oxygen. Will continue to monitor closely for change in respiratory status.
[2020-04-11] MEDS ORDERED: Albuterol/Ipratropium 4 GM Inhalation Spray INH PRN (22:19)
[2020-04-12] MEDS: Codeine/guaiFENesin 10-100 MG/5 ML Syrup 5 ML Cup PO SCH ×6 (01:05→20:52)
[2020-04-12] MEDS: Heparin Sodium 5,000 Units/ML Vial SUBCUT SCH ×3 (03:42→18:42)
[2020-04-12 06:15] LABS: HEMOGLOBIN A1C 6.4 %
[2020-04-12 06:20] LABS: CARBON DIOXIDE,CO2 26.9 mmol/L (21.0-32.0); POTASSIUM,K 4.4 mmol/L (3.5-5.1)
[2020-04-12] MEDS ORDERED: Dexamethasone 4 MG Tab PO SCH (09:00)
[2020-04-12] MEDS: Azithromycin 250 MG Tab PO SCH (10:31)
[2020-04-12] MEDS: Lactated Ringers 1,000 ML IV SCH ×2 (10:33→18:44)
[2020-04-12] MEDS: Insulin Aspart 100 Units/ML 3 ML Pen SUBCUT SCH ×3 (11:23→17:17)
--- NOTE | 2020-04-12 11:37 | PCM.PN ---
<Yuniel Hernandez - Last Filed: 04/12/20 11:38> - General Info Date of Service: 04/12/20 Subjective Update: Bedside: CC this AM is significant coughing keeping him from resting ; feeling tired. Improved diarrhea but is also experiencing chills w.o fever. - Review of Systems General: Reports: Fatigue, Chills HEENT: Reports: No Symptoms Pulmonary: Reports: Cough. Denies: Shortness of Breath, Sputum, Hemoptysis, Wheezing Cardiovascular: Reports: No Symptoms Gastrointestinal: Reports: Decreased Appetite, Diarrhea. Denies: Constipation, Nausea, Vomiting Genitourinary: Reports: No Symptoms Musculoskeletal: Reports: No Symptoms Skin: Reports: No Symptoms Neurological: Reports: Headache Psychiatric: Reports: No Symptoms - Patient Data Vitals - Most Recent: Last Vital Signs Temp 101.1 F H 04/12/20 09:00 Pulse 84 04/12/20 09:00 Resp 18 04/12/20 09:00 BP 129/73 04/12/20 09:00 Pulse Ox 92 L 04/12/20 09:00 Weight - Most Recent: 137.348 kg I&O - Last 24 Hours: Intake & Output 04/11/20 04/12/20 04/12/20 22:59 06:59 14:59 Intake Total 1050 Output Total 1250 Balance -200 Lab Results Last 24 Hours: Laboratory Results - last 24 hr 04/11/20 04/12/20 04/12/20 Range/Units 19:03 05:35 05:35 WBC 8.15 (4.0-11.0) K/uL RBC 4.97 (4.50-5.90) M/uL Hgb 12.3 L (13.0-17.0) g/dL Hct 38.2 (38.0-50.0) % MCV 76.9 L (80.0-98.0) fL MCH 24.7 L (27.0-32.0) pg MCHC 32.2 (31.0-37.0) g/dL RDW Std Deviation 37.1 (28.0-62.0) fl RDW Coeff of Gregorio 13 (11.0-15.0) % Plt Count 230 (150-400) K/uL MPV 10.30 (7.40-12.00) fL Neut % (Auto) 84.4 H (48.0-80.0) % Lymph % (Auto) 7.0 L (16.0-40.0) % Collin % (Auto) 8.5 (0.0-15.0) % Eos % (Auto) 0.0 (0.0-7.0) % Baso % (Auto) 0.1 (0.0-1.5) % Neut # (Auto) 6.9 H (1.4-5.7) K/uL Lymph # (Auto) 0.6 (0.6-2.4) K/uL Collin # (Auto) 0.7 (0.0-0.8) K/uL Eos # (Auto) 0.0 (0.0-0.7) K/uL Baso # (Auto) 0.0 (0.0-0.1) K/uL Nucleated RBC % 0.0 /100WBC Nucleated RBCs # 0 K/uL Sodium 135 L 134 L (136-148) mmol/L Potassium 4.5 4.4 (3.5-5.1) mmol/L Chloride 97 L 99 (98-107) mmol/L Carbon Dioxide 28.8 26.9 (21.0-32.0) mmol/L BUN 24 H 22 H (7.0-18.0) mg/dL Creatinine 2.4 H 1.7 H (0.8-1.3) mg/dL Est Cr Clr Drug Dosing 42.81 60.44 mL/min Estimated GFR (MDRD) 28.8 42.9 ml/min Glucose 175 H 133 H (74-106) mg/dL POC Glucose (60-110) mg/dL Hemoglobin A1c (4.5 - 6.2) % Calcium 9.1 8.7 (8.5-10.1) mg/dL Magnesium 2.4 (1.8-2.4) mg/dL Total Bilirubin 0.8 (0.2-1.0) mg/dL AST 41 H (15-37) IU/L ALT 50 (14-63) IU/L Alkaline Phosphatase 45 L (46-116) U/L Troponin I < 0.050 (0.000-0.056) ng/mL Total Protein 7.3 (6.4-8.2) g/dL Albumin 3.2 L (3.4-5.0) g/dL Globulin 4.1 H (2.6-4.0) g/dL Albumin/Globulin Ratio 0.8 L (0.9-1.6) 04/12/20 04/12/20 Range/Units 05:35 08:57 WBC (4.0-11.0) K/uL RBC (4.50-5.90) M/uL Hgb (13.0-17.0) g/dL Hct (38.0-50.0) % MCV (80.0-98.0) fL MCH (27.0-32.0) pg MCHC (31.0-37.0) g/dL RDW Std Deviation (28.0-62.0) fl RDW Coeff of Gregorio (11.0-15.0) % Plt Count (150-400) K/uL MPV (7.40-12.00) fL Neut % (Auto) (48.0-80.0) % Lymph % (Auto) (16.0-40.0) % Collin % (Auto) (0.0-15.0) % Eos % (Auto) (0.0-7.0) % Baso % (Auto) (0.0-1.5) % Neut # (Auto) (1.4-5.7) K/uL Lymph # (Auto) (0.6-2.4) K/uL Collin # (Auto) (0.0-0.8) K/uL Eos # (Auto) (0.0-0.7) K/uL Baso # (Auto) (0.0-0.1) K/uL Nucleated RBC % /100WBC Nucleated RBCs # K/uL Sodium (136-148) mmol/L Potassium (3.5-5.1) mmol/L Chloride (98-107) mmol/L Carbon Dioxide (21.0-32.0) mmol/L BUN (7.0-18.0) mg/dL Creatinine (0.8-1.3) mg/dL Est Cr Clr Drug Dosing mL/min Estimated GFR (MDRD) ml/min Glucose (74-106) mg/dL POC Glucose 122 H (60-110) mg/dL Hemoglobin A1c 6.4 H (4.5 - 6.2) % Calcium (8.5-10.1) mg/dL Magnesium (1.8-2.4) mg/dL Total Bilirubin (0.2-1.0) mg/dL AST (15-37) IU/L ALT (14-63) IU/L Alkaline Phosphatase (46-116) U/L Troponin I (0.000-0.056) ng/mL Total Protein (6.4-8.2) g/dL Albumin (3.4-5.0) g/dL Globulin (2.6-4.0) g/dL Albumin/Globulin Ratio (0.9-1.6) Med Orders - Current: Current Medications Acetaminophen (Tylenol) 650 mg PO Q4H PRN PRN Reason: Pain (Mild 1-3)/fever Albuterol/Ipratropium (Combivent Respimat) 0 gm INH Q4H PRN PRN Reason: Dyspnea Azithromycin (Zithromax) 500 mg PO Q24H [facility] Last Admin: 04/12/20 10:31 Dose: 500 mg Documented by: Benzonatate (Tessalon Perles) 200 mg PO TID PRN PRN Reason: Cough Dextrose/Water (Dextrose 50% In Water) 50 ml IV ASDIRECTED PRN PRN Reason: Hypoglycemia Glucagon (Glucagen) 1 mg IM ASDIRECTED PRN PRN Reason: Hypoglycemia Guaifenesin/Codeine Phosphate (Robitussin Ac) 5 ml PO Q4HR [facility] Heparin Sodium (Porcine) (Heparin Sodium) 5,000 units SUBCUT Q8H [facility] Last Admin: 04/12/20 03:42 Dose: 5,000 units Documented by: Lactated Ringer's (Ringers, Lactated) 1,000 mls @ 150 mls/hr IV Q6H [facility] Last Admin: 04/12/20 10:33 Dose: 150 mls/hr Documented by: Insulin Aspart (Novolog) 0 unit SUBCUT TIDAC [facility]; Protocol Last Admin: 04/12/20 11:23 Dose: Not Given Documented by: Ondansetron HCl (Zofran Odt) 4 mg PO Q4H PRN PRN Reason: nausea, able to take PO Pantoprazole Sodium (Protonix Iv) 40 mg IVPUSH Q24H [facility] Last Admin: 04/11/20 20:56 Dose: 40 mg Documented by: Discontinued Medications Albuterol/Ipratropium (Duoneb 3.0-0.5 Mg/3 Ml) 3 ml NEB Q4HRRT PRN PRN Reason: Shortness Of Breath/wheezing Dexamethasone (Dexamethasone) 6 mg PO DAILY [facility] Guaifenesin/Codeine Phosphate (Robitussin Ac) 5 ml PO Q6HR [facility] Last Admin: 04/12/20 05:32 Dose: 5 ml Documented by: Heparin Sodium (Porcine) (Heparin Sodium) 5,000 units SUBCUT Q12H [facility] Lactated Ringer's (Ringers, Lactated) 1,000 mls @ 200 mls/hr IV ASDIRECTED [facility] Last Admin: 04/11/20 20:39 Dose: 200 mls/hr Documented by: - Exam Quality Assessment: No: Supplemental Oxygen General: Alert, Oriented HEENT: EOMI Neck: Supple Lungs: Other (Diffuse rhonchi but moving air ) Cardiovascular: Regular Rate, Regular Rhythm GI/Abdominal Exam: Soft, Non-Tender Back Exam: Normal Inspection Extremities: Normal Inspection Neurological: No New Focal Deficit Psy/Mental Status: Alert, Normal Affect, Normal Mood Sepsis Event Note - Evaluation Sepsis Screening Result: No Definite Risk - Focused Exam Vital Signs: Vital Signs Temp Pulse Resp BP Pulse Ox 04/12/20 09:00 101.1 F H 84 18 129/73 92 L 04/12/20 03:44 98.4 F 59 L 19 137/77 96 - Problem List & Annotations (1) COVID-19 SNOMED Code(s): 762262776 Code(s): U07.1 - COVID-19 Status: Acute Current Visit: Yes (2) Dehydration SNOMED Code(s): 88295597 Code(s): E86.0 - DEHYDRATION Status: Acute Current Visit: Yes (3) Diarrhea SNOMED Code(s): 91947176 Code(s): R19.7 - DIARRHEA, UNSPECIFIED Status: Acute Current Visit: Yes (4) Hypertension SNOMED Code(s): 86598359 Code(s): I10 - ESSENTIAL (PRIMARY) HYPERTENSION Status: Acute Current Visit: Yes - Problem List Review Problem List Initiated/Reviewed/Updated: Yes - My Orders Last 24 Hours: My Active Orders 04/11/20 18:34 Patient Status [ADT] Routine Bedrest Bathroom Privileges [RC] ASDIRECTED Height and Weight [RC] DAILY May Shower [RC] ASDIRECTED Oxygen Therapy [RC] PRN Up ad Danna [RC] ASDIRECTED VTE/DVT Education [RC] PER UNIT ROUTINE Vital Signs [RC] Q4H Respiratory Care Assess and Treatment [CONS] Routine Acetaminophen [TylenoL] 650 mg PO Q4H PRN Ondansetron [Zofran ODT] 4 mg PO Q4H PRN Resuscitation Status Routine 04/11/20 18:36 Intake and Output [RC] Q12H 04/11/20 18:38 RT Aerosol Therapy [RC] ASDIRECTED 04/11/20 18:49 Acapella [RT Chest Physiotherapy] [RC] ASDIRECTED 04/11/20 18:52 STOOL CULTURE/SHIGA TOXIN [MREF] Urgent 04/11/20 18:54 Telemetry Monitoring [Cardiac Monitoring] [RC] Q8H 04/11/20 19:15 Heparin Sodium 5,000 units SUBCUT Q8H 04/11/20 19:48 Accu Check [Blood Glucose Check, Bedside] [RC] TIDMEALS Dextrose 50% in Water 50 ml IV ASDIRECTED PRN Glucagon,Human Recombinant [GlucaGen] 1 mg IM ASDIRECTED PRN 04/11/20 20:00 Pantoprazole [ProTONIX IV] 40 mg IVPUSH Q24H 04/12/20 Breakfast Heart Healthy Diet [DIET] 04/12/20 07:30 Insulin Aspart [NovoLOG] See Protocol SUBCUT TIDAC 04/12/20 08:58 Benzonatate [Tessalon Perles] 200 mg PO TID PRN 04/13/20 05:11 CBC WITH AUTO DIFF [HEME] AM COMPREHENSIVE METABOLIC PN,CMP [CHEM] AM 04/14/20 05:11 CBC WITH AUTO DIFF [HEME] AM COMPREHENSIVE METABOLIC PN,CMP [CHEM] AM - Plan Plan:: Assessment: 1. Dehydration with diarrhea 2. Viral pneumonia most likely secondary to COVID-19 3. Acute kidney injury secondary to above 4. Elevated D-dimer with negative CT chest 5. Past medical history: Hypertension, obesity 6. Pre-diabetes Plan. Admit inpatient. Full code. I's and O's per routine. Vitals per routine. Pantoprazole 40 daily. DVT prophylaxis: heparin 5000 q 12 hrs Heart healthy Diet 1. Significant dehydration in light of diarrhea probably secondary to COVID-19 infection: Continue LR at 150 cc/h. Encourage PO intake Stool studies ordered. 2. TIFFANY: continue hydration: improving since admission; continue hydration ; now at 150 cc/hr 3. Hold home medications for now due to softer BP secondary to dehydration ; can restart if necessary 4. Cough/COVID: since cough is aggressive will shorten interval of cough suppressant to 4 hours + start Benzonatate Concerns for low grade CAP as part of a secondary infection; will start on Azithromycin 500 today and monitor. Continue Duo-nebs and acapela Not requiring O2 as his sats have been maintained > 95% Pre-diabetes: starting TID accuchecks + low protocol SSI <Kenneth Duenas - Last Filed: 04/12/20 15:17> - Patient Data Vitals - Most Recent: Last Vital Signs Temp 38.6 C H 04/12/20 14:54 Pulse 84 04/12/20 14:54 Resp 18 04/12/20 14:54 BP 110/67 04/12/20 14:54 Pulse Ox 90 L 04/12/20 14:54 I&O - Last 24 Hours: Intake & Output 04/12/20 04/12/20 04/12/20 06:59 14:59 22:59 Intake Total 1050 Output Total 1250 Balance -200 Lab Results Last 24 Hours: Laboratory Results - last 24 hr 04/11/20 04/12/20 04/12/20 Range/Units 19:03 05:35 05:35 WBC 8.15 (4.0-11.0) K/uL RBC 4.97 (4.50-5.90) M/uL Hgb 12.3 L (13.0-17.0) g/dL Hct 38.2 (38.0-50.0) % MCV 76.9 L (80.0-98.0) fL MCH 24.7 L (27.0-32.0) pg MCHC 32.2 (31.0-37.0) g/dL RDW Std Deviation 37.1 (28.0-62.0) fl RDW Coeff of Gregorio 13 (11.0-15.0) % Plt Count 230 (150-400) K/uL MPV 10.30 (7.40-12.00) fL Neut % (Auto) 84.4 H (48.0-80.0) % Lymph % (Auto) 7.0 L (16.0-40.0) % Collin % (Auto) 8.5 (0.0-15.0) % Eos % (Auto) 0.0 (0.0-7.0) % Baso % (Auto) 0.1 (0.0-1.5) % Neut # (Auto) 6.9 H (1.4-5.7) K/uL Lymph # (Auto) 0.6 (0.6-2.4) K/uL Collin # (Auto) 0.7 (0.0-0.8) K/uL Eos # (Auto) 0.0 (0.0-0.7) K/uL Baso # (Auto) 0.0 (0.0-0.1) K/uL Nucleated RBC % 0.0 /100WBC Nucleated RBCs # 0 K/uL Lactate (0.20-2.00) mmol/L Sodium 135 L 134 L (136-148) mmol/L Potassium 4.5 4.4 (3.5-5.1) mmol/L Chloride 97 L 99 (98-107) mmol/L Carbon Dioxide 28.8 26.9 (21.0-32.0) mmol/L BUN 24 H 22 H (7.0-18.0) mg/dL Creatinine 2.4 H 1.7 H (0.8-1.3) mg/dL Est Cr Clr Drug Dosing 42.81 60.44 mL/min Estimated GFR (MDRD) 28.8 42.9 ml/min Glucose 175 H 133 H (74-106) mg/dL POC Glucose (60-110) mg/dL Hemoglobin A1c (4.5 - 6.2) % Calcium 9.1 8.7 (8.5-10.1) mg/dL Magnesium 2.4 (1.8-2.4) mg/dL Total Bilirubin 0.8 (0.2-1.0) mg/dL AST 41 H (15-37) IU/L ALT 50 (14-63) IU/L Alkaline Phosphatase 45 L (46-116) U/L Troponin I < 0.050 (0.000-0.056) ng/mL Total Protein 7.3 (6.4-8.2) g/dL Albumin 3.2 L (3.4-5.0) g/dL Globulin 4.1 H (2.6-4.0) g/dL Albumin/Globulin Ratio 0.8 L (0.9-1.6) 04/12/20 04/12/20 04/12/20 Range/Units 05:35 08:57 11:35 WBC (4.0-11.0) K/uL RBC (4.50-5.90) M/uL Hgb (13.0-17.0) g/dL Hct (38.0-50.0) % MCV (80.0-98.0) fL MCH (27.0-32.0) pg MCHC (31.0-37.0) g/dL RDW Std Deviation (28.0-62.0) fl RDW Coeff of Gregorio (11.0-15.0) % Plt Count (150-400) K/uL MPV (7.40-12.00) fL Neut % (Auto) (48.0-80.0) % Lymph % (Auto) (16.0-40.0) % Collin % (Auto) (0.0-15.0) % Eos % (Auto) (0.0-7.0) % Baso % (Auto) (0.0-1.5) % Neut # (Auto) (1.4-5.7) K/uL Lymph # (Auto) (0.6-2.4) K/uL Collin # (Auto) (0.0-0.8) K/uL Eos # (Auto) (0.0-0.7) K/uL Baso # (Auto) (0.0-0.1) K/uL Nucleated RBC % /100WBC Nucleated RBCs # K/uL Lactate (0.20-2.00) mmol/L Sodium (136-148) mmol/L Potassium (3.5-5.1) mmol/L Chloride (98-107) mmol/L Carbon Dioxide (21.0-32.0) mmol/L BUN (7.0-18.0) mg/dL Creatinine (0.8-1.3) mg/dL Est Cr Clr Drug Dosing mL/min Estimated GFR (MDRD) ml/min Glucose (74-106) mg/dL POC Glucose 122 H 124 H (60-110) mg/dL Hemoglobin A1c 6.4 H (4.5 - 6.2) % Calcium (8.5-10.1) mg/dL Magnesium (1.8-2.4) mg/dL Total Bilirubin (0.2-1.0) mg/dL AST (15-37) IU/L ALT (14-63) IU/L Alkaline Phosphatase (46-116) U/L Troponin I (0.000-0.056) ng/mL Total Protein (6.4-8.2) g/dL Albumin (3.4-5.0) g/dL Globulin (2.6-4.0) g/dL Albumin/Globulin Ratio (0.9-1.6) /18/20 Range/Units 12:39 WBC (4.0-11.0) K/uL RBC (4.50-5.90) M/uL Hgb (13.0-17.0) g/dL Hct (38.0-50.0) % MCV (80.0-98.0) fL MCH (27.0-32.0) pg MCHC (31.0-37.0) g/dL RDW Std Deviation (28.0-62.0) fl RDW Coeff of Gregorio (11.0-15.0) % Plt Count (150-400) K/uL MPV (7.40-12.00) fL Neut % (Auto) (48.0-80.0) % Lymph % (Auto) (16.0-40.0) % Collin % (Auto) (0.0-15.0) % Eos % (Auto) (0.0-7.0) % Baso % (Auto) (0.0-1.5) % Neut # (Auto) (1.4-5.7) K/uL Lymph # (Auto) (0.6-2.4) K/uL Collin # (Auto) (0.0-0.8) K/uL Eos # (Auto) (0.0-0.7) K/uL Baso # (Auto) (0.0-0.1) K/uL Nucleated RBC % /100WBC Nucleated RBCs # K/uL Lactate 2.6 H* (0.20-2.00) mmol/L Sodium (136-148) mmol/L Potassium (3.5-5.1) mmol/L Chloride (98-107) mmol/L Carbon Dioxide (21.0-32.0) mmol/L BUN (7.0-18.0) mg/dL Creatinine (0.8-1.3) mg/dL Est Cr Clr Drug Dosing mL/min Estimated GFR (MDRD) ml/min Glucose (74-106) mg/dL POC Glucose (60-110) mg/dL Hemoglobin A1c (4.5 - 6.2) % Calcium (8.5-10.1) mg/dL Magnesium (1.8-2.4) mg/dL Total Bilirubin (0.2-1.0) mg/dL AST (15-37) IU/L ALT (14-63) IU/L Alkaline Phosphatase (46-116) U/L Troponin I (0.000-0.056) ng/mL Total Protein (6.4-8.2) g/dL Albumin (3.4-5.0) g/dL Globulin (2.6-4.0) g/dL Albumin/Globulin Ratio (0.9-1.6) Med Orders - Current: Current Medications Acetaminophen (Tylenol) 650 mg PO Q4H PRN PRN Reason: Pain (Mild 1-3)/fever Last Admin: 04/12/20 12:08 Dose: 650 mg Documented by: Albuterol/Ipratropium (Combivent Respimat) 0 gm INH Q4H PRN PRN Reason: Dyspnea Azithromycin (Zithromax) 500 mg PO Q24H [facility] Last Admin: 04/12/20 10:31 Dose: 500 mg Documented by: Benzonatate (Tessalon Perles) 200 mg PO TID PRN PRN Reason: Cough Last Admin: 04/12/20 11:41 Dose: 200 mg Documented by: Dexamethasone (Dexamethasone) 6 mg PO DAILY [facility] Dextrose/Water (Dextrose 50% In Water) 50 ml IV ASDIRECTED PRN PRN Reason: Hypoglycemia Glucagon (Glucagen) 1 mg IM ASDIRECTED PRN PRN Reason: Hypoglycemia Guaifenesin/Codeine Phosphate (Robitussin Ac) 5 ml PO Q4HR [facility] Last Admin: 04/12/20 13:23 Dose: Not Given Documented by: Heparin Sodium (Porcine) (Heparin Sodium) 5,000 units SUBCUT Q8H [facility] Last Admin: 04/12/20 11:37 Dose: 5,000 units Documented by: Lactated Ringer's (Ringers, Lactated) 1,000 mls @ 150 mls/hr IV Q6H [facility] Last Admin: 04/12/20 10:33 Dose: 150 mls/hr Documented by: Lactated Ringer's (Ringers, Lactated) 1,000 mls @ 999 mls/hr IV .BOLUS ONE Stop: 04/12/20 16:07 Remdesivir 200 mg/ Sodium (Chloride) 250 mls @ 250 mls/hr IV ONETIME ONE Stop: 04/12/20 15:11 Remdesivir 100 mg/ Sodium (Chloride) 100 mls @ 100 mls/hr IV Q24H [facility] Stop: 04/16/20 09:59 Insulin Aspart (Novolog) 0 unit SUBCUT TIDAC [facility]; Protocol Last Admin: 04/12/20 11:52 Dose: Not Given Documented by: Ondansetron HCl (Zofran Odt) 4 mg PO Q4H PRN PRN Reason: nausea, able to take PO Pantoprazole Sodium (Protonix Iv) 40 mg IVPUSH Q24H [facility] Last Admin: 04/11/20 20:56 Dose: 40 mg Documented by: Discontinued Medications Albuterol/Ipratropium (Duoneb 3.0-0.5 Mg/3 Ml) 3 ml NEB Q4HRRT PRN PRN Reason: Shortness Of Breath/wheezing Dexamethasone (Dexamethasone) 6 mg PO DAILY [facility] Guaifenesin/Codeine Phosphate (Robitussin Ac) 5 ml PO Q6HR [facility] Last Admin: 04/12/20 05:32 Dose: 5 ml Documented by: Heparin Sodium (Porcine) (Heparin Sodium) 5,000 units SUBCUT Q12H [facility] Lactated Ringer's (Ringers, Lactated) 1,000 mls @ 200 mls/hr IV ASDIRECTED [facility] Last Admin: 04/11/20 20:39 Dose: 200 mls/hr Documented by: Sodium Chloride (Normal Saline) 1,000 mls @ 999 mls/hr IV .Bolus ONE Stop: 04/12/20 13:53 Last Admin: 04/12/20 13:24 Dose: 999 mls/hr Documented by: Ceftriaxone Sodium/Dextrose 1 (gm/ Premix) 50 mls @ 100 mls/hr IV DAILY ONE Stop: 04/12/20 14:03 Last Admin: 04/12/20 15:02 Dose: 100 mls/hr Documented by: Sepsis Event Note - Focused Exam Vital Signs: Vital Signs Temp Temp Pulse Resp BP Pulse Ox 04/12/20 14:54 38.6 C H 84 18 110/67 90 L 04/12/20 14:48 37.2 C 84 18 96 04/12/20 12:08 39.5 C H 04/12/20 11:50 39.3 C H 04/12/20 09:00 38.4 C H 84 18 129/73 92 L 04/12/20 03:44 36.9 C 59 L 19 137/77 96 - My Orders Last 24 Hours: My Active Orders 04/11/20 21:57 RT BiPAP/CPAP [RC] ASDIRECTED 04/11/20 22:19 RT Post Treatment Assessment [RC] Click to Edit RT Pre-Treatment Assessment [RC] Click to Edit Albuterol/Ipratropium [Combivent Respimat] See Dose Instructions INH Q4H PRN 04/12/20 15:07 Lactated Ringers [Ringers, Lactated] 1,000 ml IV .BOLUS 04/12/20 15:10 Remdesivir 200 mg Sodium Chloride 0.9% [Normal Saline] 250 ml IV ONETIME 04/12/20 15:15 BILIRUBIN DIRECT [CHEM] DAILY dexAMETHasone 6 mg PO DAILY 04/13/20 09:00 Remdesivir 100 mg Sodium Chloride 0.9% [Normal Saline] 100 ml IV Q24H 04/13/20 15:15 BILIRUBIN DIRECT [CHEM] DAILY 04/14/20 15:15 BILIRUBIN DIRECT [CHEM] DAILY 04/15/20 15:15 BILIRUBIN DIRECT [CHEM] DAILY 04/16/20 15:15 BILIRUBIN DIRECT [CHEM] DAILY - Plan Plan:: Patient seen and examined by me at bedside, patient saturations were in low 90s in late afternoon, developed fever as well started on Rocephin and azithromycin, obtain cultures, lactate, no sepsis as of now start dexamethasone, Remdesivir, oxygen as needed CPAP at night for CECE
[2020-04-12] MEDS: Benzonatate 100 MG Cap PO PRN (11:41)
[2020-04-12] MEDS: Acetaminophen 325 MG Tab PO PRN ×2 (12:08→17:08)
[2020-04-12] MEDS ORDERED: Sodium Chloride 0.9% 1,000 ML IV ONE (12:53)
[2020-04-12] MEDS ORDERED: cefTRIAXone 1 GM in Premix Bag 1 BAG IV ONE (13:34)
[2020-04-12] MEDS ORDERED: Lactated Ringers 1,000 ML IV ONE (15:07)
[2020-04-12] MEDS ORDERED: REMDESIVIR 200 MG in Sodium Chloride 0.9% 250 ML IV ONE (15:30)
[2020-04-12] MEDS: Dexamethasone 4 MG Tab PO SCH (15:48)
[2020-04-12] MEDS ORDERED: Lactated Ringers 1,000 ML IV SCH (20:30)
[2020-04-12] MEDS: Pantoprazole 40 MG Vial IVPUSH SCH (20:52)
[2020-04-13] MEDS: Codeine/guaiFENesin 10-100 MG/5 ML Syrup 5 ML Cup PO SCH ×6 (00:05→20:57)
[2020-04-13] MEDS: Heparin Sodium 5,000 Units/ML Vial SUBCUT SCH ×3 (03:51→18:47)
[2020-04-13 06:39] LABS: CARBON DIOXIDE,CO2 26.5 mmol/L (21.0-32.0); POTASSIUM,K 4.3 mmol/L (3.5-5.1)
[2020-04-13] MEDS: Insulin Aspart 100 Units/ML 3 ML Pen SUBCUT SCH ×3 (07:45→16:03)
[2020-04-13] MEDS: Dexamethasone 4 MG Tab PO SCH (08:00)
[2020-04-13] MEDS: cefTRIAXone 1 GM in Premix Bag 1 BAG IV SCH (08:02)
[2020-04-13] MEDS ORDERED: cefTRIAXone 1 GM Vial IVPUSH SCH (09:00)
[2020-04-13] MEDS: REMDESIVIR 100 MG in Sodium Chloride 0.9% 100 ML IV SCH (09:15)
[2020-04-13] MEDS: Azithromycin 250 MG Tab PO SCH (09:16)
--- NOTE | 2020-04-13 09:28 | PCM.PN ---
- General Info Date of Service: 04/13/20 Subjective Update: Bedside: c.o coughing fits are mildly improving. Mentions appetite and taste is slowly returning. Diarrhea improving but ate dinner last night w. minimal issue - Review of Systems General: Reports: Fatigue HEENT: Reports: No Symptoms Pulmonary: Reports: Cough, Wheezing. Denies: Sputum, Hemoptysis Cardiovascular: Reports: No Symptoms Gastrointestinal: Reports: Decreased Appetite, Diarrhea, Nausea. Denies: Abdominal Pain, Vomiting Genitourinary: Reports: No Symptoms Musculoskeletal: Reports: No Symptoms Skin: Reports: No Symptoms Neurological: Reports: No Symptoms Psychiatric: Reports: No Symptoms - Patient Data Vitals - Most Recent: Last Vital Signs Temp 37.4 F L 04/13/20 07:49 Pulse 77 04/13/20 07:49 Resp 18 04/13/20 07:49 BP 138/86 04/13/20 07:49 Pulse Ox 92 L 04/13/20 07:49 Weight - Most Recent: 137.801 kg I&O - Last 24 Hours: Intake & Output 04/12/20 04/13/20 04/13/20 22:59 06:59 14:59 Intake Total 3897 2000 Output Total 1300 1200 Balance 2597 800 Lab Results Last 24 Hours: Laboratory Results - last 24 hr 04/12/20 04/12/20 04/12/20 Range/Units 11:35 12:39 12:39 WBC (4.0-11.0) K/uL RBC (4.50-5.90) M/uL Hgb (13.0-17.0) g/dL Hct (38.0-50.0) % MCV (80.0-98.0) fL MCH (27.0-32.0) pg MCHC (31.0-37.0) g/dL RDW Std Deviation (28.0-62.0) fl RDW Coeff of Gregorio (11.0-15.0) % Plt Count (150-400) K/uL MPV (7.40-12.00) fL Neut % (Auto) (48.0-80.0) % Lymph % (Auto) (16.0-40.0) % [place] % (Auto) (0.0-15.0) % Eos % (Auto) (0.0-7.0) % Baso % (Auto) (0.0-1.5) % Neut # (Auto) (1.4-5.7) K/uL Lymph # (Auto) (0.6-2.4) K/uL Cascade # (Auto) (0.0-0.8) K/uL Eos # (Auto) (0.0-0.7) K/uL Baso # (Auto) (0.0-0.1) K/uL Nucleated RBC % /100WBC Nucleated RBCs # K/uL Lactate 2.6 H* (0.20-2.00) mmol/L Sodium (136-148) mmol/L Potassium (3.5-5.1) mmol/L Chloride (98-107) mmol/L Carbon Dioxide (21.0-32.0) mmol/L BUN (7.0-18.0) mg/dL Creatinine (0.8-1.3) mg/dL Est Cr Clr Drug Dosing mL/min Estimated GFR (MDRD) ml/min Glucose (74-106) mg/dL POC Glucose 124 H (60-110) mg/dL Calcium (8.5-10.1) mg/dL Total Bilirubin (0.2-1.0) mg/dL Direct Bilirubin 0.10 (0.0-0.5) mg/dL AST (15-37) IU/L ALT (14-63) IU/L Alkaline Phosphatase (46-116) U/L Total Protein (6.4-8.2) g/dL Albumin (3.4-5.0) g/dL Globulin (2.6-4.0) g/dL Albumin/Globulin Ratio (0.9-1.6) 04/12/20 04/12/20 04/13/20 Range/Units 16:31 17:11 05:43 WBC 7.90 (4.0-11.0) K/uL RBC 4.64 (4.50-5.90) M/uL Hgb 11.3 L (13.0-17.0) g/dL Hct 35.7 L (38.0-50.0) % MCV 76.9 L (80.0-98.0) fL MCH 24.4 L (27.0-32.0) pg MCHC 31.7 (31.0-37.0) g/dL RDW Std Deviation 37.7 (28.0-62.0) fl RDW Coeff of Gregorio 13 (11.0-15.0) % Plt Count 289 (150-400) K/uL MPV 10.60 (7.40-12.00) fL Neut % (Auto) 84.3 H (48.0-80.0) % Lymph % (Auto) 8.9 L (16.0-40.0) % Cascade % (Auto) 6.8 (0.0-15.0) % Eos % (Auto) 0.0 (0.0-7.0) % Baso % (Auto) 0.0 (0.0-1.5) % Neut # (Auto) 6.7 H (1.4-5.7) K/uL Lymph # (Auto) 0.7 (0.6-2.4) K/uL Cascade # (Auto) 0.5 (0.0-0.8) K/uL Eos # (Auto) 0.0 (0.0-0.7) K/uL Baso # (Auto) 0.0 (0.0-0.1) K/uL Nucleated RBC % 0.0 /100WBC Nucleated RBCs # 0 K/uL Lactate 1.5 (0.20-2.00) mmol/L Sodium (136-148) mmol/L Potassium (3.5-5.1) mmol/L Chloride (98-107) mmol/L Carbon Dioxide (21.0-32.0) mmol/L BUN (7.0-18.0) mg/dL Creatinine (0.8-1.3) mg/dL Est Cr Clr Drug Dosing mL/min Estimated GFR (MDRD) ml/min Glucose (74-106) mg/dL POC Glucose 136 H (60-110) mg/dL Calcium (8.5-10.1) mg/dL Total Bilirubin (0.2-1.0) mg/dL Direct Bilirubin (0.0-0.5) mg/dL AST (15-37) IU/L ALT (14-63) IU/L Alkaline Phosphatase (46-116) U/L Total Protein (6.4-8.2) g/dL Albumin (3.4-5.0) g/dL Globulin (2.6-4.0) g/dL Albumin/Globulin Ratio (0.9-1.6) 04/13/20 04/13/20 Range/Units 05:43 06:11 WBC (4.0-11.0) K/uL RBC (4.50-5.90) M/uL Hgb (13.0-17.0) g/dL Hct (38.0-50.0) % MCV (80.0-98.0) fL MCH (27.0-32.0) pg MCHC (31.0-37.0) g/dL RDW Std Deviation (28.0-62.0) fl RDW Coeff of Gregorio (11.0-15.0) % Plt Count (150-400) K/uL MPV (7.40-12.00) fL Neut % (Auto) (48.0-80.0) % Lymph % (Auto) (16.0-40.0) % Cascade % (Auto) (0.0-15.0) % Eos % (Auto) (0.0-7.0) % Baso % (Auto) (0.0-1.5) % Neut # (Auto) (1.4-5.7) K/uL Lymph # (Auto) (0.6-2.4) K/uL Cascade # (Auto) (0.0-0.8) K/uL Eos # (Auto) (0.0-0.7) K/uL Baso # (Auto) (0.0-0.1) K/uL Nucleated RBC % /100WBC Nucleated RBCs # K/uL Lactate (0.20-2.00) mmol/L Sodium 139 (136-148) mmol/L Potassium 4.3 (3.5-5.1) mmol/L Chloride 103 (98-107) mmol/L Carbon Dioxide 26.5 (21.0-32.0) mmol/L BUN 19 H (7.0-18.0) mg/dL Creatinine 1.5 H (0.8-1.3) mg/dL Est Cr Clr Drug Dosing 68.50 mL/min Estimated GFR (MDRD) 49.5 ml/min Glucose 120 H (74-106) mg/dL POC Glucose 120 H (60-110) mg/dL Calcium 8.7 (8.5-10.1) mg/dL Total Bilirubin 0.7 (0.2-1.0) mg/dL Direct Bilirubin (0.0-0.5) mg/dL AST 56 H (15-37) IU/L ALT 58 (14-63) IU/L Alkaline Phosphatase 41 L (46-116) U/L Total Protein 6.7 (6.4-8.2) g/dL Albumin 3.0 L (3.4-5.0) g/dL Globulin 3.7 (2.6-4.0) g/dL Albumin/Globulin Ratio 0.8 L (0.9-1.6) Andrew Results Last 24 Hours: Microbiology 04/12/20 12:55 Shiga Toxin I & II - Final Stool / Feces Med Orders - Current: Current Medications Acetaminophen (Tylenol) 650 mg PO Q4H PRN PRN Reason: Pain (Mild 1-3)/fever Last Admin: 04/12/20 17:08 Dose: 650 mg Documented by: Albuterol/Ipratropium (Combivent Respimat) 0 gm INH Q4H PRN PRN Reason: Dyspnea Azithromycin (Zithromax) 500 mg PO Q24H [facility] Last Admin: 04/13/20 09:16 Dose: 500 mg Documented by: Benzonatate (Tessalon Perles) 200 mg PO TID PRN PRN Reason: Cough Last Admin: 04/12/20 11:41 Dose: 200 mg Documented by: Dexamethasone (Dexamethasone) 6 mg PO DAILY [facility] Last Admin: 04/13/20 08:00 Dose: 6 mg Documented by: Dextrose/Water (Dextrose 50% In Water) 50 ml IV ASDIRECTED PRN PRN Reason: Hypoglycemia Glucagon (Glucagen) 1 mg IM ASDIRECTED PRN PRN Reason: Hypoglycemia Guaifenesin/Codeine Phosphate (Robitussin Ac) 5 ml PO Q4HR [facility] Last Admin: 04/13/20 07:47 Dose: 5 ml Documented by: Heparin Sodium (Porcine) (Heparin Sodium) 5,000 units SUBCUT Q8H [facility] Last Admin: 04/13/20 03:51 Dose: 5,000 units Documented by: Remdesivir 100 mg/ Sodium (Chloride) 100 mls @ 100 mls/hr IV Q24H [facility] Stop: 04/16/20 09:59 Last Admin: 04/13/20 09:15 Dose: 100 mls/hr Documented by: Ceftriaxone Sodium/Dextrose 1 (gm/ Premix) 50 mls @ 100 mls/hr IV Q24H [facility] Last Admin: 04/13/20 08:02 Dose: 100 mls/hr Documented by: Lactated Ringer's (Ringers, Lactated) 1,000 mls @ 100 mls/hr IV ASDIRECTED [facility] Insulin Aspart (Novolog) 0 unit SUBCUT TIDAC [facility]; Protocol Last Admin: 04/13/20 07:45 Dose: Not Given Documented by: Ondansetron HCl (Zofran Odt) 4 mg PO Q4H PRN PRN Reason: nausea, able to take PO Pantoprazole Sodium (Protonix Iv) 40 mg IVPUSH Q24H [facility] Last Admin: 04/12/20 20:52 Dose: 40 mg Documented by: Discontinued Medications Albuterol/Ipratropium (Duoneb 3.0-0.5 Mg/3 Ml) 3 ml NEB Q4HRRT PRN PRN Reason: Shortness Of Breath/wheezing Dexamethasone (Dexamethasone) 6 mg PO DAILY [facility] Guaifenesin/Codeine Phosphate (Robitussin Ac) 5 ml PO Q6HR [facility] Last Admin: 04/12/20 05:32 Dose: 5 ml Documented by: Heparin Sodium (Porcine) (Heparin Sodium) 5,000 units SUBCUT Q12H [facility] Lactated Ringer's (Ringers, Lactated) 1,000 mls @ 200 mls/hr IV ASDIRECTED [facility] Last Admin: 04/11/20 20:39 Dose: 200 mls/hr Documented by: Lactated Ringer's (Ringers, Lactated) 1,000 mls @ 100 mls/hr IV Q6H [facility] Last Admin: 04/12/20 18:44 Dose: 150 mls/hr Documented by: Sodium Chloride (Normal Saline) 1,000 mls @ 999 mls/hr IV .Bolus ONE Stop: 04/12/20 13:53 Last Admin: 04/12/20 13:24 Dose: 999 mls/hr Documented by: Ceftriaxone Sodium/Dextrose 1 (gm/ Premix) 50 mls @ 100 mls/hr IV DAILY ONE Stop: 04/12/20 14:03 Last Admin: 04/12/20 15:02 Dose: 100 mls/hr Documented by: Lactated Ringer's (Ringers, Lactated) 1,000 mls @ 999 mls/hr IV .BOLUS ONE Stop: 04/12/20 16:07 Last Admin: 04/12/20 15:44 Dose: 999 mls/hr Documented by: Remdesivir 200 mg/ Sodium (Chloride) 250 mls @ 250 mls/hr IV ONETIME ONE Stop: 04/12/20 16:29 Last Admin: 04/12/20 17:15 Dose: 250 mls/hr Documented by: - Exam Quality Assessment: No: Supplemental Oxygen General: Alert, Oriented HEENT: EOMI Neck: Supple Lungs: Other (diffuse rhonchi w. end-expiratory wheeze ) Cardiovascular: Regular Rate, Regular Rhythm GI/Abdominal Exam: Soft, Non-Tender Back Exam: Normal Inspection Extremities: Normal Inspection Skin: Warm Neurological: No New Focal Deficit Psy/Mental Status: Alert, Normal Affect, Normal Mood Sepsis Event Note - Evaluation Sepsis Screening Result: No Definite Risk - Focused Exam Vital Signs: Vital Signs Temp Pulse Resp BP Pulse Ox 04/13/20 07:49 37.4 F L 77 18 138/86 92 L 04/13/20 04:00 98.8 F 51 L 18 138/72 95 04/13/20 00:11 97.2 F 53 L 18 96 - Problem List & Annotations (1) COVID-19 SNOMED Code(s): 934452649 Code(s): U07.1 - COVID-19 Status: Acute Current Visit: Yes (2) Dehydration SNOMED Code(s): 88338708 Code(s): E86.0 - DEHYDRATION Status: Acute Current Visit: Yes (3) Diarrhea SNOMED Code(s): 74934828 Code(s): R19.7 - DIARRHEA, UNSPECIFIED Status: Acute Current Visit: Yes (4) Hypertension SNOMED Code(s): 96689473 Code(s): I10 - ESSENTIAL (PRIMARY) HYPERTENSION Status: Acute Current Visit: Yes - Problem List Review Problem List Initiated/Reviewed/Updated: Yes - My Orders Last 24 Hours: My Active Orders 04/12/20 08:58 Benzonatate [Tessalon Perles] 200 mg PO TID PRN 04/12/20 11:58 Blood Culture x2 Reflex Set [OM.PC] Stat 04/12/20 12:24 CULTURE BLOOD [BC] Stat 04/12/20 12:39 CULTURE BLOOD [BC] Stat 04/12/20 12:55 STOOL CULTURE/SHIGA TOXIN [MREF] Urgent 04/12/20 19:17 Cooling Warming Measures [RC] ASDIRECTED Ice Bag [Ice Therapy] [OM.PC] Routine 04/14/20 05:11 CBC WITH AUTO DIFF [HEME] AM COMPREHENSIVE METABOLIC PN,CMP [CHEM] AM - Plan Plan:: Assessment: 1. Dehydration with diarrhea 2. Viral pneumonia most likely secondary to COVID-19 3. Acute kidney injury secondary to above 4. Elevated D-dimer with negative CT chest 5. Past medical history: Hypertension, obesity 6. Pre-diabetes 7. Hx of CECE Plan. Admit inpatient. Full code. I's and O's per routine. Vitals per routine. Pantoprazole 40 daily. DVT prophylaxis: heparin 5000 q 12 hrs Heart healthy Diet 1. Dehydration in light of diarrhea probably secondary to COVID-19 infection: Improving significnatly and is tolerating PO diet w. less diarrhea this AM Discontinue LR at 100 cc/h. Encourage PO intake Stool studies ordered: results pending 2. TIFFANY: continue hydration: improving since admission; continue PO hydration 3. Hold home medications for now due to softer BP secondary to dehydration ; can restart if necessary 4. Cough/COVID: since cough is aggressive will shorten interval of cough supp ressant to 4 hours + start Benzonatate Concerns for low grade CAP as part of a secondary infection; will start on Azithromycin 500+Rocephin today and monitor. Continue Duo-nebs and acapela episodes of elevated temp yesterday : TMAX: 103 w. interval needs for supplemental o2 : started Remdesivir (signed consent) + Dexamethasone 6 mg. Continue Duo-nebs Repeat lactate was nominal after 1 liter bolus. Bxc ordered: results pending Continue CPAP at night Pre-diabetes: starting TID accuchecks + low protocol SSI
[2020-04-13] MEDS: Benzonatate 100 MG Cap PO PRN (11:03)
[2020-04-13] MEDS: Pantoprazole 40 MG Vial IVPUSH SCH (20:57)
[2020-04-14] MEDS: Codeine/guaiFENesin 10-100 MG/5 ML Syrup 5 ML Cup PO SCH ×3 (00:32→08:27)
[2020-04-14] MEDS: Heparin Sodium 5,000 Units/ML Vial SUBCUT SCH ×3 (03:12→18:27)
[2020-04-14 06:46] LABS: CARBON DIOXIDE,CO2 27.1 mmol/L (21.0-32.0); POTASSIUM,K 4.2 mmol/L (3.5-5.1)
[2020-04-14] MEDS: cefTRIAXone 1 GM in Premix Bag 1 BAG IV SCH (08:27)
[2020-04-14] MEDS: Dexamethasone 4 MG Tab PO SCH (08:27)
[2020-04-14] MEDS: Insulin Aspart 100 Units/ML 3 ML Pen SUBCUT SCH ×3 (08:29→16:05)
[2020-04-14] MEDS: Azithromycin 250 MG Tab PO SCH (09:00)
--- NOTE | 2020-04-14 09:13 | PCM.PN ---
- General Info Date of Service: 04/14/20 - Patient Data Vitals - Most Recent: Last Vital Signs Temp 3.2 C L 04/14/20 08:00 Pulse 60 04/14/20 08:00 Resp 18 04/14/20 08:00 BP 122/72 04/14/20 08:00 Pulse Ox 92 L 04/14/20 03:10 Weight - Most Recent: 137.801 kg I&O - Last 24 Hours: Intake & Output 04/13/20 04/14/20 04/14/20 22:59 06:59 14:59 Intake Total 3000 900 Output Total 1600 750 Balance 1400 150 Lab Results Last 24 Hours: Laboratory Results - last 24 hr 04/13/20 04/13/20 04/14/20 Range/Units 10:42 16:01 05:47 WBC 7.78 (4.0-11.0) K/uL RBC 4.61 (4.50-5.90) M/uL Hgb 11.4 L (13.0-17.0) g/dL Hct 35.8 L (38.0-50.0) % MCV 77.7 L (80.0-98.0) fL MCH 24.7 L (27.0-32.0) pg MCHC 31.8 (31.0-37.0) g/dL RDW Std Deviation 37.5 (28.0-62.0) fl RDW Coeff of Gregorio 13 (11.0-15.0) % Plt Count 333 (150-400) K/uL MPV 10.50 (7.40-12.00) fL Neut % (Auto) 76.7 (48.0-80.0) % Lymph % (Auto) 13.4 L (16.0-40.0) % Pettis % (Auto) 9.8 (0.0-15.0) % Eos % (Auto) 0.0 (0.0-7.0) % Baso % (Auto) 0.1 (0.0-1.5) % Neut # (Auto) 6.0 H (1.4-5.7) K/uL Lymph # (Auto) 1.0 (0.6-2.4) K/uL Pettis # (Auto) 0.8 (0.0-0.8) K/uL Eos # (Auto) 0.0 (0.0-0.7) K/uL Baso # (Auto) 0.0 (0.0-0.1) K/uL Nucleated RBC % 0.0 /100WBC Nucleated RBCs # 0 K/uL Sodium (136-148) mmol/L Potassium (3.5-5.1) mmol/L Chloride (98-107) mmol/L Carbon Dioxide (21.0-32.0) mmol/L BUN (7.0-18.0) mg/dL Creatinine (0.8-1.3) mg/dL Est Cr Clr Drug Dosing mL/min Estimated GFR (MDRD) ml/min Glucose (74-106) mg/dL POC Glucose 170 H 158 H (60-110) mg/dL Calcium (8.5-10.1) mg/dL Total Bilirubin (0.2-1.0) mg/dL AST (15-37) IU/L ALT (14-63) IU/L Alkaline Phosphatase (46-116) U/L Total Protein (6.4-8.2) g/dL Albumin (3.4-5.0) g/dL Globulin (2.6-4.0) g/dL Albumin/Globulin Ratio (0.9-1.6) 04/14/20 04/14/20 Range/Units 05:47 08:29 WBC (4.0-11.0) K/uL RBC (4.50-5.90) M/uL Hgb (13.0-17.0) g/dL Hct (38.0-50.0) % MCV (80.0-98.0) fL MCH (27.0-32.0) pg MCHC (31.0-37.0) g/dL RDW Std Deviation (28.0-62.0) fl RDW Coeff of Gregorio (11.0-15.0) % Plt Count (150-400) K/uL MPV (7.40-12.00) fL Neut % (Auto) (48.0-80.0) % Lymph % (Auto) (16.0-40.0) % Pettis % (Auto) (0.0-15.0) % Eos % (Auto) (0.0-7.0) % Baso % (Auto) (0.0-1.5) % Neut # (Auto) (1.4-5.7) K/uL Lymph # (Auto) (0.6-2.4) K/uL Pettis # (Auto) (0.0-0.8) K/uL Eos # (Auto) (0.0-0.7) K/uL Baso # (Auto) (0.0-0.1) K/uL Nucleated RBC % /100WBC Nucleated RBCs # K/uL Sodium 139 (136-148) mmol/L Potassium 4.2 (3.5-5.1) mmol/L Chloride 102 (98-107) mmol/L Carbon Dioxide 27.1 (21.0-32.0) mmol/L BUN 17 (7.0-18.0) mg/dL Creatinine 1.4 H (0.8-1.3) mg/dL Est Cr Clr Drug Dosing 73.39 mL/min Estimated GFR (MDRD) 53.6 ml/min Glucose 119 H (74-106) mg/dL POC Glucose 100 (60-110) mg/dL Calcium 8.8 (8.5-10.1) mg/dL Total Bilirubin 0.6 (0.2-1.0) mg/dL AST 43 H (15-37) IU/L ALT 63 (14-63) IU/L Alkaline Phosphatase 42 L (46-116) U/L Total Protein 6.8 (6.4-8.2) g/dL Albumin 3.0 L (3.4-5.0) g/dL Globulin 3.8 (2.6-4.0) g/dL Albumin/Globulin Ratio 0.8 L (0.9-1.6) Andrew Results Last 24 Hours: Microbiology 04/12/20 12:39 Aerobic Blood Culture - Preliminary Blood - Venous NO GROWTH AFTER 1 DAY Anaerobic Blood Culture - Preliminary NO GROWTH AFTER 1 DAY 04/12/20 12:24 Aerobic Blood Culture - Preliminary Blood - Venous - Lab Draw NO GROWTH AFTER 1 DAY Anaerobic Blood Culture - Preliminary NO GROWTH AFTER 1 DAY 04/12/20 12:55 Shiga Toxin I & II - Final Stool / Feces Med Orders - Current: Current Medications Acetaminophen (Tylenol) 650 mg PO Q4H PRN PRN Reason: Pain (Mild 1-3)/fever Last Admin: 04/12/20 17:08 Dose: 650 mg Documented by: Albuterol/Ipratropium (Combivent Respimat) 0 gm INH Q4H PRN PRN Reason: Dyspnea Azithromycin (Zithromax) 500 mg PO Q24H [facility] Last Admin: 04/14/20 09:00 Dose: 500 mg Documented by: Benzonatate (Tessalon Perles) 200 mg PO TID PRN PRN Reason: Cough Last Admin: 04/13/20 11:03 Dose: 200 mg Documented by: Dexamethasone (Dexamethasone) 6 mg PO DAILY [facility] Last Admin: 04/14/20 08:27 Dose: 6 mg Documented by: Dextrose/Water (Dextrose 50% In Water) 50 ml IV ASDIRECTED PRN PRN Reason: Hypoglycemia Glucagon (Glucagen) 1 mg IM ASDIRECTED PRN PRN Reason: Hypoglycemia Guaifenesin/Dextromethorphan (Robitussin Dm) 10 ml PO Q4HR [facility] Heparin Sodium (Porcine) (Heparin Sodium) 5,000 units SUBCUT Q8H [facility] Last Admin: 04/14/20 03:12 Dose: 5,000 units Documented by: Remdesivir 100 mg/ Sodium (Chloride) 100 mls @ 100 mls/hr IV Q24H [facility] Stop: 04/16/20 09:59 Last Admin: 04/13/20 09:15 Dose: 100 mls/hr Documented by: Ceftriaxone Sodium/Dextrose 1 (gm/ Premix) 50 mls @ 100 mls/hr IV Q24H [facility] Last Admin: 04/14/20 08:27 Dose: 100 mls/hr Documented by: Insulin Aspart (Novolog) 0 unit SUBCUT TIDAC [facility]; Protocol Last Admin: 04/14/20 08:29 Dose: Not Given Documented by: Ondansetron HCl (Zofran Odt) 4 mg PO Q4H PRN PRN Reason: nausea, able to take PO Pantoprazole Sodium (Protonix Iv) 40 mg IVPUSH Q24H [facility] Last Admin: 04/13/20 20:57 Dose: 40 mg Documented by: Discontinued Medications Albuterol/Ipratropium (Duoneb 3.0-0.5 Mg/3 Ml) 3 ml NEB Q4HRRT PRN PRN Reason: Shortness Of Breath/wheezing Dexamethasone (Dexamethasone) 6 mg PO DAILY [facility] Guaifenesin/Codeine Phosphate (Robitussin Ac) 5 ml PO Q6HR [facility] Last Admin: 04/12/20 05:32 Dose: 5 ml Documented by: Guaifenesin/Codeine Phosphate (Robitussin Ac) 5 ml PO Q4HR [facility] Last Admin: 04/14/20 08:27 Dose: 5 ml Documented by: Heparin Sodium (Porcine) (Heparin Sodium) 5,000 units SUBCUT Q12H [facility] Lactated Ringer's (Ringers, Lactated) 1,000 mls @ 200 mls/hr IV ASDIRECTED [facility] Last Admin: 04/11/20 20:39 Dose: 200 mls/hr Documented by: Lactated Ringer's (Ringers, Lactated) 1,000 mls @ 100 mls/hr IV Q6H [facility] Last Admin: 04/12/20 18:44 Dose: 150 mls/hr Documented by: Sodium Chloride (Normal Saline) 1,000 mls @ 999 mls/hr IV .Bolus ONE Stop: 04/12/20 13:53 Last Admin: 04/12/20 13:24 Dose: 999 mls/hr Documented by: Ceftriaxone Sodium/Dextrose 1 (gm/ Premix) 50 mls @ 100 mls/hr IV DAILY [facility] Stop: 04/12/20 14:03 Last Admin: 04/12/20 15:02 Dose: 100 mls/hr Documented by: Lactated Ringer's (Ringers, Lactated) 1,000 mls @ 999 mls/hr IV .BOLUS ONE Stop: 04/12/20 16:07 Last Admin: 04/12/20 15:44 Dose: 999 mls/hr Documented by: Remdesivir 200 mg/ Sodium (Chloride) 250 mls @ 250 mls/hr IV ONETIME ONE Stop: 04/12/20 16:29 Last Admin: 04/12/20 17:15 Dose: 250 mls/hr Documented by: Lactated Ringer's (Ringers, Lactated) 1,000 mls @ 100 mls/hr IV ASDIRECTED [facility] - Exam General: Alert, Oriented Neck: Supple Lungs: Clear to Auscultation, Normal Respiratory Effort Cardiovascular: Regular Rate, Regular Rhythm Extremities: Non-Tender, No Pedal Edema Skin: Warm, Dry, Intact Neurological: No New Focal Deficit Sepsis Event Note - Evaluation Sepsis Screening Result: No Definite Risk - Focused Exam Vital Signs: Vital Signs Temp Pulse Resp BP Pulse Ox 04/14/20 08:00 3.2 C L 60 18 122/72 04/14/20 03:10 36.2 C 62 18 137/75 92 L 04/14/20 00:33 61 04/14/20 00:00 36.9 C 19 133/70 96 - Problem List Review Problem List Initiated/Reviewed/Updated: Yes - My Orders Last 24 Hours: My Active Orders 04/14/20 12:00 Dextromethorphan/guaiFENesin [Robitussin DM] 10 ml PO Q4HR - Plan Plan:: 49 yo male admitted for COVID-19 COVID-19: continue dexamethasone, remdesivir possible pneumnia: Rocephin and azithromycin TIFFANY: resolving
[2020-04-14] MEDS: REMDESIVIR 100 MG in Sodium Chloride 0.9% 100 ML IV SCH (10:08)
[2020-04-14] MEDS: guaiFENesin/Dextromethorphan 100-10 MG/5 ML Soln 10 ML Cup PO SCH ×4 (12:01→23:32)
[2020-04-14] MEDS: Pantoprazole 40 MG Vial IVPUSH SCH (20:23)
[2020-04-15] MEDS: Heparin Sodium 5,000 Units/ML Vial SUBCUT SCH ×3 (03:22→18:24)
[2020-04-15] MEDS: guaiFENesin/Dextromethorphan 100-10 MG/5 ML Soln 10 ML Cup PO SCH ×5 (03:22→20:15)
[2020-04-15 06:44] LABS: CARBON DIOXIDE,CO2 29.2 mmol/L (21.0-32.0)
[2020-04-15] MEDS: Insulin Aspart 100 Units/ML 3 ML Pen SUBCUT SCH ×3 (08:09→16:15)
[2020-04-15] MEDS: Dexamethasone 4 MG Tab PO SCH (08:10)
[2020-04-15] MEDS: cefTRIAXone 1 GM in Premix Bag 1 BAG IV SCH (08:10)
[2020-04-15] MEDS: REMDESIVIR 100 MG in Sodium Chloride 0.9% 100 ML IV SCH (09:33)
[2020-04-15] MEDS: Azithromycin 250 MG Tab PO SCH (09:33)
--- NOTE | 2020-04-15 10:18 | PCM.PN ---
- General Info Date of Service: 04/15/20 Admission Dx/Problem (Free Text): Admission Diagnosis/Problem Admission Diagnosis/Problem Diarrhea in adult patient Subjective Update: Continues to feel tired today. Denies any chest pain. Reports mild shortness of breath with ambulation. Continues to have dry nonproductive cough. He feels nervous about going home and has many questions regarding safety at home. As well as returning to work. Functional Status: Reports: Pain Controlled, Tolerating Diet, Ambulating, Urinating - Review of Systems General: Reports: Fatigue, Malaise HEENT: Reports: No Symptoms. Denies: Headaches, Visual Changes Pulmonary: Reports: Shortness of Breath (Intermittent), Cough. Denies: Sputum Cardiovascular: Reports: Dyspnea on Exertion (With exertion). Denies: Chest Pain, Palpitations Gastrointestinal: Reports: No Symptoms. Denies: Abdominal Pain, Nausea, Vomiting Genitourinary: Reports: No Symptoms. Denies: Dysuria, Frequency, Burning Musculoskeletal: Reports: No Symptoms Skin: Reports: No Symptoms Neurological: Reports: No Symptoms Psychiatric: Reports: No Symptoms - Patient Data Vitals - Most Recent: Last Vital Signs Temp 37.8 F L 04/15/20 08:00 Pulse 60 04/15/20 08:00 Resp 18 04/15/20 08:00 BP 146/80 H 04/15/20 08:00 Pulse Ox 92 L 04/15/20 08:00 Weight - Most Recent: 137.983 kg I&O - Last 24 Hours: Intake & Output 04/14/20 04/15/20 04/15/20 22:59 06:59 14:59 Intake Total 2600 2120 Output Total 1300 1000 Balance 1300 1120 Lab Results Last 24 Hours: Laboratory Results - last 24 hr 04/14/20 04/14/20 04/15/20 Range/Units 11:54 16:05 05:47 WBC 9.64 (4.0-11.0) K/uL RBC 4.75 (4.50-5.90) M/uL Hgb 11.5 L (13.0-17.0) g/dL Hct 37.0 L (38.0-50.0) % MCV 77.9 L (80.0-98.0) fL MCH 24.2 L (27.0-32.0) pg MCHC 31.1 (31.0-37.0) g/dL RDW Std Deviation 37.6 (28.0-62.0) fl RDW Coeff of Gregorio 13 (11.0-15.0) % Plt Count 349 (150-400) K/uL MPV 10.30 (7.40-12.00) fL Neut % (Auto) 73.1 (48.0-80.0) % Lymph % (Auto) 15.6 L (16.0-40.0) % [place] % (Auto) 10.8 (0.0-15.0) % Eos % (Auto) 0.3 (0.0-7.0) % Baso % (Auto) 0.2 (0.0-1.5) % Neut # (Auto) 7.1 H (1.4-5.7) K/uL Lymph # (Auto) 1.5 (0.6-2.4) K/uL [place] # (Auto) 1.0 H (0.0-0.8) K/uL Eos # (Auto) 0.0 (0.0-0.7) K/uL Baso # (Auto) 0.0 (0.0-0.1) K/uL Nucleated RBC % 0.0 /100WBC Nucleated RBCs # 0 K/uL Sodium (136-148) mmol/L Potassium (3.5-5.1) mmol/L Chloride (98-107) mmol/L Carbon Dioxide (21.0-32.0) mmol/L BUN (7.0-18.0) mg/dL Creatinine (0.8-1.3) mg/dL Est Cr Clr Drug Dosing mL/min Estimated GFR (MDRD) ml/min Glucose (74-106) mg/dL POC Glucose 156 H 113 H (60-110) mg/dL Calcium (8.5-10.1) mg/dL Total Bilirubin (0.2-1.0) mg/dL AST (15-37) IU/L ALT (14-63) IU/L Alkaline Phosphatase (46-116) U/L Total Protein (6.4-8.2) g/dL Albumin (3.4-5.0) g/dL Globulin (2.6-4.0) g/dL Albumin/Globulin Ratio (0.9-1.6) 04/15/20 04/15/20 Range/Units 05:47 08:09 WBC (4.0-11.0) K/uL RBC (4.50-5.90) M/uL Hgb (13.0-17.0) g/dL Hct (38.0-50.0) % MCV (80.0-98.0) fL MCH (27.0-32.0) pg MCHC (31.0-37.0) g/dL RDW Std Deviation (28.0-62.0) fl RDW Coeff of Gregorio (11.0-15.0) % Plt Count (150-400) K/uL MPV (7.40-12.00) fL Neut % (Auto) (48.0-80.0) % Lymph % (Auto) (16.0-40.0) % [place] % (Auto) (0.0-15.0) % Eos % (Auto) (0.0-7.0) % Baso % (Auto) (0.0-1.5) % Neut # (Auto) (1.4-5.7) K/uL Lymph # (Auto) (0.6-2.4) K/uL [place] # (Auto) (0.0-0.8) K/uL Eos # (Auto) (0.0-0.7) K/uL Baso # (Auto) (0.0-0.1) K/uL Nucleated RBC % /100WBC Nucleated RBCs # K/uL Sodium 138 (136-148) mmol/L Potassium 4.0 (3.5-5.1) mmol/L Chloride 101 (98-107) mmol/L Carbon Dioxide 29.2 (21.0-32.0) mmol/L BUN 18 (7.0-18.0) mg/dL Creatinine 1.4 H (0.8-1.3) mg/dL Est Cr Clr Drug Dosing 73.39 mL/min Estimated GFR (MDRD) 53.6 ml/min Glucose 99 (74-106) mg/dL POC Glucose 101 (60-110) mg/dL Calcium 8.7 (8.5-10.1) mg/dL Total Bilirubin 0.6 (0.2-1.0) mg/dL AST 38 H (15-37) IU/L ALT 62 (14-63) IU/L Alkaline Phosphatase 42 L (46-116) U/L Total Protein 6.7 (6.4-8.2) g/dL Albumin 2.8 L (3.4-5.0) g/dL Globulin 3.9 (2.6-4.0) g/dL Albumin/Globulin Ratio 0.7 L (0.9-1.6) Andrew Results Last 24 Hours: Microbiology 04/12/20 12:39 Aerobic Blood Culture - Preliminary Blood - Venous NO GROWTH AFTER 2 DAYS Anaerobic Blood Culture - Preliminary NO GROWTH AFTER 2 DAYS 04/12/20 12:24 Aerobic Blood Culture - Preliminary Blood - Venous - Lab Draw NO GROWTH AFTER 2 DAYS Anaerobic Blood Culture - Preliminary NO GROWTH AFTER 2 DAYS 04/12/20 12:55 Stool Culture - Preliminary Stool / Feces Shiga Toxin I & II - Final Med Orders - Current: Current Medications Acetaminophen (Tylenol) 650 mg PO Q4H PRN PRN Reason: Pain (Mild 1-3)/fever Last Admin: 04/12/20 17:08 Dose: 650 mg Documented by: Albuterol/Ipratropium (Combivent Respimat) 0 gm INH Q4H PRN PRN Reason: Dyspnea Azithromycin (Zithromax) 500 mg PO Q24H [facility] Last Admin: 04/15/20 09:33 Dose: 500 mg Documented by: Benzonatate (Tessalon Perles) 200 mg PO TID PRN PRN Reason: Cough Last Admin: 04/13/20 11:03 Dose: 200 mg Documented by: Dexamethasone (Dexamethasone) 6 mg PO DAILY [facility] Last Admin: 04/15/20 08:10 Dose: 6 mg Documented by: Dextrose/Water (Dextrose 50% In Water) 50 ml IV ASDIRECTED PRN PRN Reason: Hypoglycemia Glucagon (Glucagen) 1 mg IM ASDIRECTED PRN PRN Reason: Hypoglycemia Guaifenesin/Dextromethorphan (Robitussin Dm) 10 ml PO Q4HR [facility] Last Admin: 04/15/20 08:09 Dose: 10 ml Documented by: Heparin Sodium (Porcine) (Heparin Sodium) 5,000 units SUBCUT Q8H [facility] Last Admin: 04/15/20 03:22 Dose: 5,000 units Documented by: Remdesivir 100 mg/ Sodium (Chloride) 100 mls @ 100 mls/hr IV Q24H [facility] Stop: 04/16/20 09:59 Last Admin: 04/15/20 09:33 Dose: 100 mls/hr Documented by: Ceftriaxone Sodium/Dextrose 1 (gm/ Premix) 50 mls @ 100 mls/hr IV Q24H [facility] Last Admin: 04/15/20 08:10 Dose: 100 mls/hr Documented by: Insulin Aspart (Novolog) 0 unit SUBCUT TIDAC [facility]; Protocol Last Admin: 04/15/20 08:09 Dose: Not Given Documented by: Ondansetron HCl (Zofran Odt) 4 mg PO Q4H PRN PRN Reason: nausea, able to take PO Pantoprazole Sodium (Protonix Iv) 40 mg IVPUSH Q24H [facility] Last Admin: 04/14/20 20:23 Dose: 40 mg Documented by: Discontinued Medications Albuterol/Ipratropium (Duoneb 3.0-0.5 Mg/3 Ml) 3 ml NEB Q4HRRT PRN PRN Reason: Shortness Of Breath/wheezing Dexamethasone (Dexamethasone) 6 mg PO DAILY [facility] Guaifenesin/Codeine Phosphate (Robitussin Ac) 5 ml PO Q6HR [facility] Last Admin: 04/12/20 05:32 Dose: 5 ml Documented by: Guaifenesin/Codeine Phosphate (Robitussin Ac) 5 ml PO Q4HR [facility] Last Admin: 04/14/20 08:27 Dose: 5 ml Documented by: Heparin Sodium (Porcine) (Heparin Sodium) 5,000 units SUBCUT Q12H [facility] Lactated Ringer's (Ringers, Lactated) 1,000 mls @ 200 mls/hr IV ASDIRECTED [facility] Last Admin: 04/11/20 20:39 Dose: 200 mls/hr Documented by: Lactated Ringer's (Ringers, Lactated) 1,000 mls @ 100 mls/hr IV Q6H [facility] Last Admin: 04/12/20 18:44 Dose: 150 mls/hr Documented by: Sodium Chloride (Normal Saline) 1,000 mls @ 999 mls/hr IV .Bolus ONE Stop: 04/12/20 13:53 Last Admin: 04/12/20 13:24 Dose: 999 mls/hr Documented by: Ceftriaxone Sodium/Dextrose 1 (gm/ Premix) 50 mls @ 100 mls/hr IV DAILY ONE Stop: 04/12/20 14:03 Last Admin: 04/12/20 15:02 Dose: 100 mls/hr Documented by: Lactated Ringer's (Ringers, Lactated) 1,000 mls @ 999 mls/hr IV .BOLUS ONE Stop: 04/12/20 16:07 Last Admin: 04/12/20 15:44 Dose: 999 mls/hr Documented by: Remdesivir 200 mg/ Sodium (Chloride) 250 mls @ 250 mls/hr IV ONETIME ONE Stop: 04/12/20 16:29 Last Admin: 04/12/20 17:15 Dose: 250 mls/hr Documented by: Lactated Ringer's (Ringers, Lactated) 1,000 mls @ 100 mls/hr IV ASDIRECTED DALILA - Exam Quality Assessment: DVT Prophylaxis. No: Supplemental Oxygen (On room air) General: Alert, Oriented, Cooperative, No Acute Distress Lungs: Normal Respiratory Effort, Wheezing (Scant wheezing heard on expiration), Other (Dry nonproductive cough with increased talking or activity) Cardiovascular: Regular Rate, Regular Rhythm, No Murmurs GI/Abdominal Exam: Normal Bowel Sounds, Soft, Non-Tender Extremities: Normal Inspection, Normal Range of Motion, Non-Tender, No Pedal Edema Neurological: No New Focal Deficit Psy/Mental Status: Alert, Normal Affect, Normal Mood Sepsis Event Note - Evaluation Sepsis Screening Result: No Definite Risk - Focused Exam Vital Signs: Vital Signs Temp Pulse Resp BP Pulse Ox 04/15/20 08:00 37.8 F L 60 18 146/80 H 92 L 04/15/20 03:20 98.8 F 53 L 18 161/84 H 96 04/14/20 23:32 97.5 F 55 L 19 157/81 H 95 - Problem List & Annotations (1) TIFFANY (acute kidney injury) SNOMED Code(s): 28167557, 79150216 Code(s): N17.9 - ACUTE KIDNEY FAILURE, UNSPECIFIED Status: Acute Current Visit: Yes (2) COVID-19 SNOMED Code(s): 249789475 Code(s): U07.1 - COVID-19 Status: Acute Current Visit: Yes (3) Dehydration SNOMED Code(s): 39104017 Code(s): E86.0 - DEHYDRATION Status: Acute Current Visit: Yes (4) Diarrhea SNOMED Code(s): 83679887 Code(s): R19.7 - DIARRHEA, UNSPECIFIED Status: Acute Current Visit: Yes (5) Hypertension SNOMED Code(s): 60205041 Code(s): I10 - ESSENTIAL (PRIMARY) HYPERTENSION Status: Acute Current Visit: Yes - Problem List Review Problem List Initiated/Reviewed/Updated: Yes - My Orders Last 24 Hours: My Active Orders 04/15/20 09:29 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 COVID-19 infection/CAP -Continue dexamethasone and remdesivir -Currently on room air -Combivent as needed -Encourage I-S and Acapella use hourly -Also encourage prone positioning as possible -Continue Rocephin and azithromycin for possible CAP -Had a lengthy discussion regarding post Covid syndrome and fatigue. He is very nervous to return home as he is alone as well as returning to work. He was counseled that his quarantine., Due to hospitalization, is extended to 20 days total. He will likely be safe for discharge tomorrow after last dose of remdesivir. Work note will be provided and he will need follow-up with PCP. -We will also check oxygen saturation activity today. 2. TIFFANY secondary to COVID-19 with diarrhea -Reports formed stool x2 diarrhea now gone -TIFFANY is improving BUN 0.8 creatinine 1.4 continue to monitor 3. Hypertension -We will start amlodipine 5 mg for hypertension. -Was previously on hydrochlorothiazide and triamterene along with losartan. We will hold off on losartan due to recent TIFFANY and will transition to amlodipine. VTE prophylaxis: Heparin CODE STATUS; full code Dispo: 1 to 2 days
[2020-04-15] MEDS: amLODIPine 5 MG Tab PO SCH (12:36)
[2020-04-15] MEDS: Benzonatate 100 MG Cap PO PRN ×2 (12:38→20:32)
[2020-04-15] MEDS ORDERED: Pantoprazole 40 MG in Sodium Chloride 0.9% 10 ML IV SCH (20:00)
[2020-04-16] MEDS: guaiFENesin/Dextromethorphan 100-10 MG/5 ML Soln 10 ML Cup PO SCH ×3 (00:04→08:54)
[2020-04-16] MEDS: Heparin Sodium 5,000 Units/ML Vial SUBCUT SCH ×2 (03:59→10:20)
[2020-04-16] MEDS: Benzonatate 100 MG Cap PO PRN (04:08)
[2020-04-16] MEDS: Insulin Aspart 100 Units/ML 3 ML Pen SUBCUT SCH (06:50)
[2020-04-16 07:10] LABS: CARBON DIOXIDE,CO2 31.7 mmol/L (21.0-32.0); POTASSIUM,K 4.4 mmol/L (3.5-5.1)
[2020-04-16 08:53] VITALS: BP 103/61; PULSE 58
[2020-04-16] MEDS: amLODIPine 5 MG Tab PO SCH (08:54)
[2020-04-16] MEDS: Dexamethasone 4 MG Tab PO SCH (08:54)
[2020-04-16] MEDS: cefTRIAXone 1 GM in Premix Bag 1 BAG IV SCH (08:57)
[2020-04-16] MEDS: REMDESIVIR 100 MG in Sodium Chloride 0.9% 100 ML IV SCH (09:43)
[2020-04-16] MEDS: Azithromycin 250 MG Tab PO SCH (10:20)
--- NOTE | 2020-04-16 15:58 | PCM.DCSUM1 ---
Discharge Summary - Hospital Course HPI Initial Comments: Patient is a 49-year-old male with a significant past medical history of hypertension on triamterene and losartan presenting today as transfer from [facility] secondary for 9 to 10 days of increasing diarrhea and reduced appetite. Patient did test positive for Covid 9 days prior and was advised to monitor vitals at home. Since diagnosis patient has been lethargic, fatigued, complaining of decreased appetite. Of note has been trying to keep hydrated with liquids and chicken soup but is having 6-7 watery bowel movements daily sometimes waking up in the middle of the night. Denies any chest pain, shortness of breath. 2 days prior appreciated some fevers with chills with increasing fatigue and presented himself to [facility] where it was determined that patient will likely need to be transferred to [facility] in [place]. ED course in [facility]: Patient received 10 mg dexamethasone +2 L LR bolus and Toradol 50 mg IV once. EKG performed showing no ST elevation or depression CT angio ordered secondary to elevated D-dimer showing no pulmonary embolism. Patchy groundglass opacities throughout both lungs most likely representing Covid pneumonia. Mild bilateral bronchial wall thickening. Positive small hiatal hernia. Labs Troponin at 1209: 0.04 troponin at 1411: 0.03 WBC 5.1. Creatinine 2.65 GFR 31 D-dimer 1.32. UA negative Diagnosis: Stroke: No - Discharge Data Discharge Date: 04/16/20 Discharge Disposition: Home, Self-Care 01 Condition: Good - Referral to Home Health Primary Care Physician: PCP Unknown - Discharge Diagnosis/Problem(s) (1) TIFFANY (acute kidney injury) SNOMED Code(s): 83678499, [id number] ICD Code: N17.9 - ACUTE KIDNEY FAILURE, UNSPECIFIED Status: Acute (2) COVID-19 SNOMED Code(s): 885668333 ICD Code: U07.1 - COVID-19 Status: Acute (3) Dehydration SNOMED Code(s): 08557194 ICD Code: E86.0 - DEHYDRATION Status: Acute (4) Diarrhea SNOMED Code(s): 33440864 ICD Code: R19.7 - DIARRHEA, UNSPECIFIED Status: Acute (5) Hypertension SNOMED Code(s): 89773969 ICD Code: I10 - ESSENTIAL (PRIMARY) HYPERTENSION Status: Acute (6) Hypoxia SNOMED Code(s): 140815960 ICD Code: R09.02 - HYPOXEMIA Status: Acute - Patient Summary/Data Consults: Consultations 04/11/20 18:34 Respiratory Care Assess and Treatment [CONS] Routine Hospital Course: Admission diagnoses: COVID-19 Nausea vomiting and diarrhea TIFFANY Discharge diagnoses COVID-19 TIFFANY resolved Hypoxia Other PMH Hypertension Pasquale was admitted secondary to TIFFANY from COVID-19 that caused nausea vomiting diarrhea. He was treated with gentle hydration and TIFFANY improved. Initially he was not hypoxic but after 1 day of admission he showed increasing shortness of breath and hypoxia. He was started on dexamethasone and remdesivir. He was also treated with azithromycin and Rocephin for possible CAP. He has continued to do well and has been weaned off of oxygen at rest. But continues to need oxygen with ambulation. Room air sats at rest are 93%. With activity sats dropped to 87 to 88% on room air. On 2 L of oxygen he does increase to 93% with activity. He is in need of portable oxygen, 2 L around the house as he is up and ambulating. He will need to continue to quarantine for another 1 week to equal 20 days due to his severity of disease and hospitalization. He was counseled on this as well as wearing a mask in public. He was heavily counseled on not going into public during his quarantine. He verbalized understanding. During his stay blood pressure did elevate after gentle hydration. He was treated with amlodipine 5 mg this controlled blood pressure well. Losartan hydrochlorthiazide and triamterene will be on hold for this time. PCP may monitor and restart as needed. He will also be sent home with dexamethasone 6 mg for 5 more days along with Prilosec and aspirin 81 mg which is to be continued for 1 month. 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 He was given work release for 1 week or until primary care follow-up. PCP will need to determine if further time off is needed beyond this and he was agreeable to this. He is to return to the ER or clinic if concerns should arise. He was told to monitor blood pres sure as well as oxygen levels with pulse oximetry, prescription provided. He is to return to the ER if shortness of breath fever chills return or he is not feeling improved. All questions and concerns addressed prior to discharge. - Patient Instructions Diet: Heart Healthy Diet Activity: No Strenuous Activities, Rest and Relax Today Driving: Do Not Drive Showering/Bathing: May Shower Notify Provider of: Fever, Increased Pain, Swelling and Redness, Drainage, Nausea and/or Vomiting Other/Special Instructions: Monitor Blood pressure and heart rate at home with new medications. Monitor oxygen level, should be 90% or better. Wear oxygen with activity or when feeling short of breath. Need to continue to quarantine for total 20 days since positive test day (04/02) so quarantine ends 04/22 at midnight. - Discharge Plan *PRESCRIPTION DRUG MONITORING PROGRAM REVIEWED*: Not Applicable *COPY OF PRESCRIPTION DRUG MONITORING REPORT IN PATIENT RAE: Not Applicable Prescriptions/Med Rec: Aspirin 81 mg PO DAILY #30 tab.chew dexAMETHasone [Dexamethasone] 6 mg PO DAILY #8 tablet amLODIPine [Norvasc] 5 mg PO DAILY #30 tablet Omeprazole Magnesium [Prilosec Otc] 20 mg PO DAILY #14 tablet. Home Medications: Home Meds buPROPion [buPROPion XL] 150 mg PO BEDTIME 07/08/18 [History] Acetaminophen [Tylenol] 650 mg PO Q4H PRN tablet 04/16/20 [Rx] Albuterol/Ipratropium [Combivent Respimat] 1 puff INH Q4H PRN inhaler 04/16/20 [Rx] Aspirin 81 mg PO DAILY #30 tab.chew 04/16/20 [Rx] Omeprazole Magnesium [Prilosec Otc] 20 mg PO DAILY #14 tablet. 04/16/20 [Rx] amLODIPine [Norvasc] 5 mg PO DAILY #30 tablet 04/16/20 [Rx] dexAMETHasone [Dexamethasone] 6 mg PO DAILY #8 tablet 04/16/20 [Rx] Oxygen Therapy Mode: Nasal Cannula Oxygen Flow Rate (L/min): 2 Maintain SpO2% greater than: 90 Patient Handouts: Albuterol; Ipratropium respiratory inhalation spray (Combivent Respimat), COVID-19 Frequently Asked Questions, COVID-19, COVID-19: How to Protect Yourself and Others - CDC, Amlodipine tablets, Aspirin, ASA oral tablets, Dexamethasone tablets, Prevent the Spread of COVID-19 if You Are Sick - CDC, Omeprazole tablets (OTC) Referrals: Kati Malagon [employer] [Ordering Only Provider] - 04/24/20 10:30 am ([place], [place]) - Discharge Summary/Plan Comment DC Time >30 min.: No - Patient Data Vitals - Most Recent: Last Vital Signs Temp 96.8 F L 04/16/20 08:52 Pulse 58 L 04/16/20 08:52 Resp 18 04/16/20 08:52 BP 103/61 04/16/20 08:54 Pulse Ox 88 L 04/16/20 08:52 Weight - Most Recent: 133.628 kg I&O - Last 24 hours: Intake & Output 04/16/20 04/16/20 04/16/20 06:59 14:59 22:59 Intake Total 1500 Balance 1500 Lab Results - Last 24 hrs: Laboratory Results - last 24 hr 04/15/20 04/16/20 04/16/20 Range/Units 16:14 05:58 05:58 WBC 9.62 (4.0-11.0) K/uL RBC 4.72 (4.50-5.90) M/uL Hgb 11.7 L (13.0-17.0) g/dL Hct 36.6 L (38.0-50.0) % MCV 77.5 L (80.0-98.0) fL MCH 24.8 L (27.0-32.0) pg MCHC 32.0 (31.0-37.0) g/dL RDW Std Deviation 37.6 (28.0-62.0) fl RDW Coeff of Gregorio 13 (11.0-15.0) % Plt Count 364 (150-400) K/uL MPV 10.10 (7.40-12.00) fL Neut % (Auto) 70.9 (48.0-80.0) % Lymph % (Auto) 15.9 L (16.0-40.0) % [place] % (Auto) 12.4 (0.0-15.0) % Eos % (Auto) 0.7 (0.0-7.0) % Baso % (Auto) 0.1 (0.0-1.5) % Neut # (Auto) 6.8 H (1.4-5.7) K/uL Lymph # (Auto) 1.5 (0.6-2.4) K/uL [place] # (Auto) 1.2 H (0.0-0.8) K/uL Eos # (Auto) 0.1 (0.0-0.7) K/uL Baso # (Auto) 0.0 (0.0-0.1) K/uL Nucleated RBC % 0.0 /100WBC Nucleated RBCs # 0 K/uL Sodium 139 (136-148) mmol/L Potassium 4.4 (3.5-5.1) mmol/L Chloride 102 (98-107) mmol/L Carbon Dioxide 31.7 (21.0-32.0) mmol/L BUN 18 (7.0-18.0) mg/dL Creatinine 1.4 H (0.8-1.3) mg/dL Est Cr Clr Drug Dosing 73.39 mL/min Estimated GFR (MDRD) 53.6 ml/min Glucose 110 H (74-106) mg/dL POC Glucose 160 H (60-110) mg/dL Calcium 9.0 (8.5-10.1) mg/dL Total Bilirubin 0.7 (0.2-1.0) mg/dL AST 31 (15-37) IU/L ALT 63 (14-63) IU/L Alkaline Phosphatase 42 L (46-116) U/L Total Protein 6.6 (6.4-8.2) g/dL Albumin 2.8 L (3.4-5.0) g/dL Globulin 3.8 (2.6-4.0) g/dL Albumin/Globulin Ratio 0.7 L (0.9-1.6) 04/16/20 Range/Units 06:47 WBC (4.0-11.0) K/uL RBC (4.50-5.90) M/uL Hgb (13.0-17.0) g/dL Hct (38.0-50.0) % MCV (80.0-98.0) fL MCH (27.0-32.0) pg MCHC (31.0-37.0) g/dL RDW Std Deviation (28.0-62.0) fl RDW Coeff of Gregorio (11.0-15.0) % Plt Count (150-400) K/uL MPV (7.40-12.00) fL Neut % (Auto) (48.0-80.0) % Lymph % (Auto) (16.0-40.0) % [place] % (Auto) (0.0-15.0) % Eos % (Auto) (0.0-7.0) % Baso % (Auto) (0.0-1.5) % Neut # (Auto) (1.4-5.7) K/uL Lymph # (Auto) (0.6-2.4) K/uL [place] # (Auto) (0.0-0.8) K/uL Eos # (Auto) (0.0-0.7) K/uL Baso # (Auto) (0.0-0.1) K/uL Nucleated RBC % /100WBC Nucleated RBCs # K/uL Sodium (136-148) mmol/L Potassium (3.5-5.1) mmol/L Chloride (98-107) mmol/L Carbon Dioxide (21.0-32.0) mmol/L BUN (7.0-18.0) mg/dL Creatinine (0.8-1.3) mg/dL Est Cr Clr Drug Dosing mL/min Estimated GFR (MDRD) ml/min Glucose (74-106) mg/dL POC Glucose 105 (60-110) mg/dL Calcium (8.5-10.1) mg/dL Total Bilirubin (0.2-1.0) mg/dL AST (15-37) IU/L ALT (14-63) IU/L Alkaline Phosphatase (46-116) U/L Total Protein (6.4-8.2) g/dL Albumin (3.4-5.0) g/dL Globulin (2.6-4.0) g/dL Albumin/Globulin Ratio (0.9-1.6) AMOS Results - Last 24 hrs: Microbiology 04/12/20 12:39 Aerobic Blood Culture - Preliminary Blood - Venous NO GROWTH AFTER 4 DAYS Anaerobic Blood Culture - Preliminary NO GROWTH AFTER 4 DAYS 04/12/20 12:24 Aerobic Blood Culture - Preliminary Blood - Venous - Lab Draw NO GROWTH AFTER 4 DAYS Anaerobic Blood Culture - Preliminary NO GROWTH AFTER 4 DAYS 04/12/20 12:55 Stool Culture - Final Stool / Feces Shiga Toxin I & II - Final Med Orders - Current: Current Medications Discontinued Medications Acetaminophen (Tylenol) 650 mg PO Q4H PRN PRN Reason: Pain (Mild 1-3)/fever Last Admin: 04/12/20 17:08 Dose: 650 mg Documented by: Albuterol/Ipratropium (Duoneb 3.0-0.5 Mg/3 Ml) 3 ml NEB Q4HRRT PRN PRN Reason: Shortness Of Breath/wheezing Albuterol/Ipratropium (Combivent Respimat) 0 gm INH Q4H PRN PRN Reason: Dyspnea Amlodipine Besylate (Norvasc) 5 mg PO DAILY [facility] Last Admin: 04/16/20 08:54 Dose: 5 mg Documented by: Azithromycin (Zithromax) 500 mg PO Q24H [facility] Last Admin: 04/16/20 10:20 Dose: 500 mg Documented by: Benzonatate (Tessalon Perles) 200 mg PO TID PRN PRN Reason: Cough Last Admin: 04/16/20 04:08 Dose: 200 mg Documented by: Dexamethasone (Dexamethasone) 6 mg PO DAILY [facility] Dexamethasone (Dexamethasone) 6 mg PO DAILY [facility] Last Admin: 04/16/20 08:54 Dose: 6 mg Documented by: Dextrose/Water (Dextrose 50% In Water) 50 ml IV ASDIRECTED PRN PRN Reason: Hypoglycemia Glucagon (Glucagen) 1 mg IM ASDIRECTED PRN PRN Reason: Hypoglycemia Guaifenesin/Codeine Phosphate (Robitussin Ac) 5 ml PO Q6HR [facility] Last Admin: 04/12/20 05:32 Dose: 5 ml Documented by: Guaifenesin/Codeine Phosphate (Robitussin Ac) 5 ml PO Q4HR [facility] Last Admin: 04/14/20 08:27 Dose: 5 ml Documented by: Guaifenesin/Dextromethorphan (Robitussin Dm) 10 ml PO Q4HR [facility] Last Admin: 04/16/20 08:54 Dose: 10 ml Documented by: Heparin Sodium (Porcine) (Heparin Sodium) 5,000 units SUBCUT Q12H [facility] Heparin Sodium (Porcine) (Heparin Sodium) 5,000 units SUBCUT Q8H [facility] Last Admin: 04/16/20 10:20 Dose: 5,000 units Documented by: Lactated Ringer's (Ringers, Lactated) 1,000 mls @ 200 mls/hr IV ASDIRECTED [facility] Last Admin: 04/11/20 20:39 Dose: 200 mls/hr Documented by: Lactated Ringer's (Ringers, Lactated) 1,000 mls @ 100 mls/hr IV Q6H [facility] Last Admin: 04/12/20 18:44 Dose: 150 mls/hr Documented by: Sodium Chloride (Normal Saline) 1,000 mls @ 999 mls/hr IV .Bolus ONE Stop: 04/12/20 13:53 Last Admin: 04/12/20 13:24 Dose: 999 mls/hr Documented by: Ceftriaxone Sodium/Dextrose 1 (gm/ Premix) 50 mls @ 100 mls/hr IV DAILY ONE Stop: 04/12/20 14:03 Last Admin: 04/12/20 15:02 Dose: 100 mls/hr Documented by: Lactated Ringer's (Ringers, Lactated) 1,000 mls @ 999 mls/hr IV .BOLUS ONE Stop: 04/12/20 16:07 Last Admin: 04/12/20 15:44 Dose: 999 mls/hr Documented by: Remdesivir 200 mg/ Sodium (Chloride) 250 mls @ 250 mls/hr IV ONETIME ONE Stop: 04/12/20 16:29 Last Admin: 04/12/20 17:15 Dose: 250 mls/hr Documented by: Remdesivir 100 mg/ Sodium (Chloride) 100 mls @ 100 mls/hr IV Q24H [facility] Stop: 04/16/20 09:59 Last Admin: 04/16/20 09:43 Dose: 100 mls/hr Documented by: Ceftriaxone Sodium/Dextrose 1 (gm/ Premix) 50 mls @ 100 mls/hr IV Q24H [facility] Last Admin: 04/16/20 08:57 Dose: 100 mls/hr Documented by: Lactated Ringer's (Ringers, Lactated) 1,000 mls @ 100 mls/hr IV ASDIRECTED [facility] Pantoprazole Sodium 40 mg/ (Sodium Chloride) 10 mls @ 200 mls/hr IV Q24H [facility] Last Admin: 04/15/20 20:10 Dose: 200 mls/hr Documented by: Insulin Aspart (Novolog) 0 unit SUBCUT TIDAC [facility]; Protocol Last Admin: 04/16/20 06:50 Dose: Not Given Documented by: Ondansetron HCl (Zofran Odt) 4 mg PO Q4H PRN PRN Reason: nausea, able to take PO Pantoprazole Sodium (Protonix Iv) 40 mg IVPUSH Q24H [facility] Last Admin: 04/14/20 20:23 Dose: 40 mg Documented by: - Exam General: Reports: Alert, Oriented, Cooperative, No Acute Distress Lungs: Reports: Clear to Auscultation, Normal Respiratory Effort Cardiovascular: Reports: Regular Rate, Regular Rhythm GI/Abdominal Exam: Normal Bowel Sounds, Soft, Non-Tender Back Exam: Reports: Normal Inspection, Full Range of Motion Skin: Reports: Warm, Dry Neurological: Reports: No New Focal Deficit Psy/Mental Status: Reports: Alert, Normal Affect, Normal Mood
== END 2020-04-16 12:45 | disposition home or self-care (01) | DRG 177 ==
LOC: MW.MS 17:49 → OBSVTOIN 18:34
PROVIDERS: ADMIT Student in an Organized Health Care Education/Training Program; ATTEND Student in an Organized Health Care Education/Training Program
PROC: XW033E5 Introduction of Remdesivir Anti-infective into Peripheral Vein, Percutaneous Approach, New Technology Group 5 (ICD-10-PCS; principal; 2020-04-11)
PROC: 8E0ZXY6 Isolation (ICD-10-PCS; 2020-04-11)
PROC: 5A09457 Assistance with Respiratory Ventilation, 24-96 Consecutive Hours, Continuous Positive Airway Pressure (ICD-10-PCS; 2020-04-11)
DX: U07.1 COVID-19 (principal); J18.9 Pneumonia, unspecified organism; J12.89 Other viral pneumonia; N17.9 Acute kidney failure, unspecified; I10 Essential (primary) hypertension; E86.0 Dehydration; K44.9 Diaphragmatic hernia without obstruction or gangrene; J30.9 Allergic rhinitis, unspecified; M19.90 Unspecified osteoarthritis, unspecified site; E66.9 Obesity, unspecified; G47.33 Obstructive sleep apnea (adult) (pediatric); Z79.82 Long term (current) use of aspirin; Z79.899 Other long term (current) drug therapy; Z98.890 Other specified postprocedural states; Z87.891 Personal history of nicotine dependence
CPT/HCPCS: 36415; 80048; 80053; 82248; 82962; 83036; 83605; 83735; 84484; 85025; 87040; 87045; 87046; 87449; 87899; 94660; 94667; A9270-GY; C9113; J0696; J1644; J1815-GY; J7030; J7050; J7120; J8540